=== PATIENT | female | born 1995 | race Hispanic/Latino ===

== ENCOUNTER 2024-09-07 13:38 | Emergency (ER) | payer MEDICAID, SELFPAY ==
[2024-09-07 13:49] VITALS: BP 121/65; PULSE 120; RESP 20; TEMP 37.5; O2SAT 98
[2024-09-07 15:26] LABS: BEDSIDEPREGUCG Negative (Negative)
[2024-09-07 15:43] LABS: Add Urine Microscopic? YES; Appearance Urine Cloudy (Clear); Bacteria Urine 4+ /hpf; Bilirubin Urine 1+ (Negative); Blood Urine 3+ (Negative); Color Urine Dark Yellow (Yellow); Glucose Urine UA Negative (Negative); Ketones Urine 3+ mg/dL (Negative); Leukocyte Esterase Ur 2+ LEU/UL (Negative); Nitrate Urine Positive (Negative); Non Pathogenic Casts 0-2; Protein Urine 2+ mg/dL (Negative); RBC Urine >100 /hpf (0-2); Squamous Epithelial Cell Urine None Seen /hpf (Few); WBC Urine >100 /hpf (0-3); pH Urine 5.5 (5.0-9.0)
[2024-09-07 16:16] VITALS: BP 125/76; PULSE 114; RESP 17; TEMP 37.2; O2SAT 98
--- OUTSIDE RECORDS SUMMARY | 2024-09-07 16:24 | XMS_ITS | Patient Health Summary ---
Author Organization [facility] Address [address] [place] [address] Care Team Providers Care Green Material Value Added Assessor Name Role Phone Unknown, Provider Primary Care Provider Unavaila ble Note from [facility],non-owned Affiliates and Associated Physician Practices is amultiple site organization consisting of ambulatory clinics and hospital sitesin [place], [place], [place] and [place]. This disclosure is being madepursuant to the Care Everywhere program and may not contain all information available regarding this patient. Last updated 18.[facility] Allergies No known active allergies Medications * Be aware that medications may not be up to date on this document. Alwaysverify current medications with the patient. * Vit-Fe Fumarate-FA ( vitamin) 28-0.8 MG tablet Take 1 (one) tablet by mouth once daily Social History Tobacco Use Types Packs/Day Years Used Date Smoking Tobacco: Never Assessed Sex and Gender Information Value Date Recorded Sex Assigned at Not on file Gender Identity Not on file Sexual Orientation Not on file Last Filed Vital Signs Vital Sign Reading Time Taken Comments Blood Pressure 113/60 03/07/2024 11:28 AM CDT Pulse 71 03/07/2024 11:28 AM CDT Temperature - - Respiratory Rate 18 03/07/2024 11:28 AM CDT Oxygen Saturation - - Inhaled Oxygen Concentration - - Weight 85.3 kg (188 lb) 03/07/2024 11:28 AM CDT Height 172 cm (5' 7.72 ) 03/07/2024 11:28 AM CDT Body Mass Index 28.82 03/07/2024 11:28 AM CDT Procedures * SONOGRAM - COMPLETE(Performed 03/07/2024) Performed for Second (HCC), 27 weeks gestation of (HCC), Low-lying placenta (HCC), Encounter for follow-up ultrasound of anatomy (HCC) * SONOGRAM - COMPLETE(Performed 01/04/2024) Performed for Encounter for ultrasound (HCC), Second (HCC), 23 weeks gestation of (HCC) * SONOGRAM - COMPLETE(Performed 12/11/2023) Performed for Second (HCC), 20 weeks gestation of (HCC), Encounter for anatomic survey ([facility]) Results * SONOGRAM - COMPLETE (03/07/2024 10:27 AM CDT) Only the most recent of3 resultswithin the time period is included. Anatomical Region Laterality Modality Other 03/07/2024 10:2 7 AM CDT Narrative 03/07/2024 12:31 PM CDT [facility] [place] PHONE: FAX: Pat. Name: ELISHA DUNCAN Pat. No: [id number] Study Date: 03/07/2024 10:27am , Age: 08 1995, 29 Pregnancies: 2, Para 1001 Height: 67 in Weight: 167 lb LMP: 07/24/2023 GA by LMP: 32w3d GA by Base: 32w3d ADAM: 04/29/2024 GA by US: 33w1d ADAM: 04/24/2024 GA Selected: 32w3d (LMP) ADAM: 04/29/2024 Referring MD: Marisol Ibarra DO Psychotherapist: Angelique Mir RDMS CPT4: 22281 BMI: 26.15 Hist/Ind: Possible tuberculosis infection MEASUREMENTS & AGE GROWTH EVALUATION Measurement GA Range Srce %for GA Ratios ----- ---- ------- BPD 8.4 cm 34w0d (67i6e-94b2o) Hadl BPD 84% FL/BPD 0.76 (0.71 - 0.87) HC 31.3 cm 35w0d (84l0m-40u6g) Hadl HC 81% FL/AC 0.23 (0.20 - 0.24) AC 27.5 cm 31w4d (42l7m-74o0q) Hadl AC 24% HC/AC 1.14 (0.95 - 1.14) FL 6.4 cm 33w0d (93o8s-78c0v) Hadl FL 55% CI 0.75 (0.70 - 0.86) HL 5.6 cm 32w4d (03k5s-15l7q) Dionicio HL 52% GA for sonogram 33w1d (25v7b-74p0r) Weight Estimate: based on (BPD,HC,AC,FL) Hadlock Weight: 2001 gm (1709-2293gm) Had : 4lbs, 6oz Normal: 2037 gm (1528-2546gm) Had Wt% 45% for 32w3d Heart Rate: 157 bpm Amniotic Fluid Index: 10.2cm (08.5-24.3) Q1: 1.7cm Q2: 2.1cm Q3: 3.2cm Q4: 3.2cm PROCEDURE, TECHNIQUE Technique: transabdominal EVAL, PLACENTA Presentation: cephalic Placenta: posterior:fundal Heart Rate: 157 bpm Amniotic Fluid Volume: normal Anatomy!Normal!Abnormal!Suboptimal!Prev. Seen!Comments Cranium ! ! ! ! x ! Mdl (CSP/Thal! ! ! ! x ! Ventricles ! ! ! ! x ! Choroid Plexu! ! ! ! x ! Cerebellum ! ! ! ! x ! Cisterna M. ! ! ! ! x ! Orbits ! ! ! ! x ! Profile ! ! ! ! x ! Nasal Bone ! ! ! ! x ! Lip ! ! ! ! x ! Spine ! x ! ! ! x !unremarkable transverse L/S spine, all other views were previously seen and WNL Lungs ! ! ! ! x ! 4 Chamber Hea! ! ! ! x ! LVOT ! ! ! ! x ! RVOT ! ! ! ! x ! 3 Vessel View! ! ! ! x ! 3 Vessel Trac! ! ! ! x ! Cross-over ! ! ! ! x ! Ductal Arch ! ! ! ! x ! Aortic Arch ! ! ! ! x ! Caval View ! ! ! ! x ! Situs ! ! ! ! x ! Diaphragm ! x ! ! ! ! Stomach ! ! ! ! x ! Bowel ! ! ! ! x ! Kidneys ! ! ! ! x ! Bladder ! ! ! ! x ! 3 Vessel Cord! ! ! ! x ! Cord In! x ! ! ! ! Upper Extremi! ! ! ! x ! Hands ! ! ! ! x ! Lower Extremi! ! ! ! x ! Feet ! ! ! ! x ! External Genesis! ! ! ! x ! Placental Cor! ! ! ! x ! Maternal Adne! ! ! ! x ! CLINICAL SUMMARY * Saucedo IUP at 32 weeks of gestation by stated EDC from LMP * Referred to MF for obstetrical U/S & request for consult secondary to: Possible tuberculosis (TB) infection * Today's ultrasound (U/S) findings: Living saucedo intrauterine fetus growth is in the normal range Amniotic fluid volume appears normal Placenta location appears normal ASSESSMENT Saucedo IUP at 32 weeks of gestation by stated EDC from LMP & early U/S Today's U/S shows normal interval growth & amniotic fluid volume Uncertain history of tuberculosis (TB) infection COUNSELING & RECOMMENDATIONS (PLEASE SEE FULL CONSULT IN EPIC) * In my best medical opinion, I would advise: After extensive history-taking, I am unsure if she has had documented TB infection She is advised to go [place] to local health department for TB testing Follow-up with our M HISTORICAL ARCHEOLOGIST to review health department findings & recommendations Follow-up U/S with MFM if later indicated Be prepared for possible recurrent uterine inversion Giles Patrick MD <Electronic Signature> 03/07/2024 12:31pm Trey Estes MD [facility] ORDERABLES Care Teams Green Material Value Added Assessor Relationship Specialty Start Date End Date Unknown, Provider PCP - General 12/11/23
--- OUTSIDE RECORDS SUMMARY | 2024-09-07 16:24 | XMS_ITS | Clinical Summary ---
Author Organization [facility] Address [address] [place] [address] Care Team Providers Care Timing Adjuster Name Role Phone Unknown, Provider Primary Care Provider Unavaila ble Source Comments [facility],non-owned Affiliates and Associated Physician Practices is amultiple site organization consisting of ambulatory clinics and hospital sitesin [place], [place], [place] and [place]. This disclosure is being madepursuant to the Care Everywhere program and may not contain all information available regarding this patient. Last updated 18.[facility] Month Allergies No known active allergies Medications * Be aware that medications may not be up to date on this document. Alwaysverify current medications with the patient. Medication Sig Dispensed Refills Start Date End Date Status Vit-Fe Fumarate-FA ( vitamin) 28-0.8 MG tablet Take 1 (one) tablet by mouth once daily Active Social History Tobacco Use Types Packs/Day Years [...] Mass Index 28.82 03/07/2024 11:28 AM CDT Plan of Treatment Health Maintenance Due Date Last Done Comments PAP SMEAR 1994 HIV SCREENING 2009 HEPATITIS C SCREENING 02/07/2012 DTAP/TDAP/TD VACCINES (1 - Tdap) 2013 HEPATITIS B VACCINE (1 of 3 - 19+ 3-dose series) 2013 COVID-19 VACCINE (1 - 2023-2 5 season) 2024 INFLUENZA VACCINE (#1) 2024 DEPRESSION SCREENING 06/26/2024 ZOSTER VACCINE (1 of 2) 02/12/2044 HIB VACCINE Aged Out No longer eligi ble based on patient's age to complete this topic HPV VACCINE Aged Out No longer eligi ble based on patient's age to complete this topic MENINGOCOCCAL (Group B) VACC INE SHARED DECISION-MAKING Aged Out No longer eligibl e based on patient's age to complete this topic MENINGOCOCCAL GROUPS A/C/Y/W VACCINE Aged Out No longer eligible b ased on patient's age to complete this topic PNEUMOCOCCAL VACCINE Aged Out No long er eligible based on patient's age to complete this topic Respiratory Syncytial Virus (RSV) Vaccine Pt: or over 60 yrs (No Doses Required) Completed Care Teams Timing Adjuster Relationship Specialty Start Date End Date Unknown, Provider PCP - General 12/11/23
--- OUTSIDE RECORDS SUMMARY | 2024-09-07 16:24 | XMS_ITS | Referral Summary ---
Author Organization [facility] Address [address] [place] [address] Care Team Providers Care Quality Process Engineer Name Role Phone Unknown, Provider Primary Care Provider Unavaila ble Source Comments [facility],non-owned Affiliates and Associated Physician Practices is amultiple site organization consisting of ambulatory clinics and hospital sitesin [place], [place], [place] and [place]. This disclosure is being madepursuant to the Care Everywhere program and may not contain all information available regarding this patient. Last updated 18.[facility] Allergies No known active allergies Medications * [...] 03/07/2024 11:28 AM CDT Plan of Treatment Not on file Care Teams Quality Process Engineer Relationship Specialty Start Date End Date Unknown, Provider PCP - General 12/11/23
--- OUTSIDE RECORDS SUMMARY | 2024-09-07 16:25 | XMS_ITS | Clinical Summary ---
Author Organization [facility] Address [address] [place] [address] Care Team Providers Care Registration Representative Name Role Phone Rosa Green MD Primary Care Provider [phone] Allergies No known active allergies Medications vitamin, low iron, ( VITAMIN WITH IRON) 27-0.8 MG tablet Take 1 tablet by mouth daily. Active Active Problems Problem Noted Date Diagnosed Date History of uterine inversion 04/27/2024 Overview (04/27/2024): US@ 32.3w, cephalic, placenta post/fundal, YOU 10.2cm, EFW 45%/2001g. Be prepared for possible recurrent uterine inversion. Inactive tuberculosis 02/23/2024 Overview (04/27/2024): Quantiferon gold + 11/16/2023 CXR 01/16/24 show inactive disease - pt opting to wait until after delivery for treatment - MFM referral completed, OK to wait until after delivery. Low risk for becoming active. Treatment for Latent TB Infection and (https://www.cdc.gov/tb/topic/treatment/.htm) For most women, treatment for latent TB infection can be delayed until 2 ??3 months post- to avoid administering unnecessary medication during . For women who are at high risk for progression from latent TB infection to TB disease, especially those who are a recent contact of someone with infectious TB disease, treatment for latent TB infection should not be delayed on the basis of alone, even during the first trimester. TB Treatment Regimens for Women: Latent TB Infection (choose 1) 1.) 4-month daily regimen of rifampin (RIF) (4R) 2.) 6- or 9-month daily regimen of INH (6H or 9H) , with pyridoxine (vitamin B6) supplementation Suspected tuberculosis 11/29/2023 Overview (04/27/2024): https://www.cdc.gov/tb/topic/treatment/.htm Resolved Problems Problem Noted Date Diagnosed Date Resolved Date Gestational hypertension ([facility]) 04/27/2024 04/27/2024 ([facility]) 04/25/2024 04/27/20 24 Social History Tobacco Use Types Packs/Day Years Used Date Smoking Tobacco: Never Smokeless Tobacco: Never Tobacco Cessation:Counseling Given: Not Answered Alcohol Use Standard Drinks/Week Comments Not Currently 0 (1 standard drink = 0.6 oz pur e alcohol) B1300 Health Literacy Answer Date Recor ded How often do you need to hav e someone help you when you read instructions, pamphlets, or other written material from your doctor or pharmacy? Rarely 04/25/2024 [facility] Utilities Answer Date Recorded In the past 12 months has [facility] [employer], [employer], oil, or water [place] threatened to shut off services in your home? No 04/25/2024 Humiliation, Afraid, Rape, and Kick questionnair e Answer Date Recorded Within the last year, have y ou been afraid of your partner or ex-partner? No 04/25/2024 Within the last year, have y ou been humiliated or emotionally abused in other ways by your partner or ex-partner? No Within the last year, have y ou been kicked, hit, slapped, or otherwise physically hurt by your partner or ex-partner? No 04/25/2024 Within the last year, have y ou been raped or forced to have any kind of sexual activity by your partner or ex-partner? No 04/25/2024 Social Connection and Isolat ion Panel [NHANES] Answer Date Recorded In a typical week, how many times do you talk on the phone with family, friends, or neighbors? More than three times a week 04/25/2024 How often do you get togethe r with friends or relatives? Never 04/25/2024 How often do you attend chur ch or anabaptism services? Never 04/25/2024 Do you belong to any clubs o r organizations such as confucianist groups, unions, fraternal or athletic groups, or school groups? Yes 04/25/2024 How often do you attend meet ings of the clubs or organizations you belong to? Never 04/25/2024 Are you , , di vorced, , never , or living with a partner? 04/25/2024 AUDIT-C Answer Date Recorded Q1: How often do you have a drink containing alcohol? Never 04/25/2024 Q2: How many drinks containi ng alcohol do you have on a typical day when you are drinking? Patient does not drink Q3: How often do you have si x or more drinks on one occasion? Never 04/25/2024 Overall Financial Resource Strain (CARDIA) Answe r Date Recorded How hard is it for you to pa y for the very basics like food, housing, medical care, and heating? Not hard at all 04/25/2024 [facility] [place] of Occupat ional Health - Occupational Stress Questionnaire Answer Date Recorded Do you feel stress - tense, restless, nervous, or anxious, or unable to sleep at night because your mind is troubled all the time - these days? Not at all 04/25/2024 Exercise Vital Sign Answer Date Recorde d On average, how many days pe r week do you engage in moderate to strenuous exercise (like a brisk walk)? 0 days 04/25/2024 On average, how many minutes do you engage in exercise at this level? 0 min 04/25/2024 Hunger Vital Sign Answer Date Recorded Within the past 12 months, y ou worried that your food would run out before you got the money to buy more. Never true 04/25/20 24 Within the past 12 months, t he food you bought just didn't last and you didn't have money to get more. Never true 04/25/2024 PRAPARE - Transportation Answer Date Re corded In the past 12 months, has l ack of transportation kept you from medical appointments or from getting medications? No 03/28 In the past 12 months, has l ack of transportation kept you from meetings, work, or from getting things needed for daily living? No 04/25/2024 Housing Stability Vital Sign Answer Nathan e Recorded In the last 12 months, was t here a time when you were not able to pay the mortgage or rent on time? No 04/25/2024 In the past 12 months, how m any times have you moved where you were living? 1 04/25/2024 At any time in the past 12 m ont, were you homeless or living in a assisted (including now)? No 04/25/2024 Depression Answer Date Recor ded Last EPDS Total Score 1 04/27/2024 Last EPDS Self Harm Result Hardly ever 04/27 Comments No Sex and Gender Information Value Date Recorded Sex Assigned at Not on file Legal Sex Female 12:47 PM CDT Gender Identity Not on file Sexual Orientation Not on file Last Filed Vital Signs Vital Sign Reading Time Taken Comments Blood Pressure 115/62 04/27/2024 8:00 AM CDT Pulse 68 04/27/2024 8:00 AM CDT Temperature 36.9 C (98.5 F) 04/27/2024 8:00 AM CDT Respiratory Rate 18 04/27/2024 8:00 AM CDT Oxygen Saturation 99% 04/27/2024 8:00 AM CDT Inhaled Oxygen Concentration - - Weight 88.5 kg (195 lb) 04/25/2024 5:20 PM CDT Height 170.2 cm (5' 7 ) 04/25/2024 5:20 PM CDT Body Mass Index 30.54 04/25/2024 5:20 PM CDT Plan of Treatment Health Maintenance Due Date Last Done Comments Cervical Cancer Screening Pa p Smear (Age 30 to 64) Every 3 Years 1994 Annual Physical 1997 Hepatitis C 02/12/2012 Hepatitis B Vaccines (1 of 3 - 19+ 3-dose series) 2013 Cervical Cancer Screening Pa p with HPV Testing (Age 30 to 64) Every 5 Years 02/12/2024 Cervical Cancer Screening with HPV 02/12/2024 COVID-19 Vaccine (2023-2 5 season) 2024 DTaP, Tdap and Td Vaccines ( 2 - Td or Tdap) 02/19/2034 02/20/2024 Influenza Adult Completed 03/21/2024 HPV Vaccines Aged Out No longer eligi ble based on patient's age to complete this topic Meningococcal B Vaccine Aged Out No l onger eligible based on patient's age to complete this topic Meningococcal Vaccine Aged Out No wyatt real eligible based on patient's age to complete this topic Pneumococcal Vaccine: Pediat rics (0 to 5 Years) and At-Risk Patients (6 to 64 Years) Aged Out No longer eligi ble based on patient's age to complete this topic RSV Immunizations Under 20 Months Aged Out No longer eligible based on patient's age to complete this topic Insurance MEDICAID Advance Directives * Full Code (Latest Code Status on File) Date Activated Date Inactivated Comments 04/25/2024 6:25 PM 04/27/2024 2:51 PM Care Teams Registration Representative Relationship Specialty Start Date End Date Rosa Green MD [address] [phone] PCP - General FAMILY PRACTICE 04/25/24
--- OUTSIDE RECORDS SUMMARY | 2024-09-07 16:25 | XMS_ITS | Data Portability ---
Author Organization [place] - [facility] Address [address] [place] [address] Care Team Providers Care Drapery Sewer Hand Name Role Phone MARIVEL GREEN Primary Care Provider Unavailabl e Assessment No assessment recorded. Plan of Treatment Reminders Order Date Submit Date Provider Last Modified By Organization Details Last Modified Time Details Appointments ANY 15 2024 09:00A M Marivel Green MD Not available Not available Not available Lab cytology study, smear or scraping, cervical or vaginal 2024 025 [facility], [address] [place] [address], [address], [place], [address], 07/11/2024 16:32:34 Referral None recorded. Procedures None recorded. Surgeries None recorded. Imaging None recorded. Medication Orders Priftin 150 mg tablet 2024 025 [id number], [id number] , [place], [place], [id number], 08/22/2024 17:49:46 isoniazid 300 mg tablet 2024 025 [facility] #[id number], [id number] , [place], [place], [id number], 08/22/2024 17:49:46 Patient TargetsNo targets recorded. Patient Instructions Encounter Date Encounter Id Patient Instructions Last Modified By Organization Details Last Modified Time 04/30/2024 [id number] I was present an d available in the Family Medicine clinic to discuss this patient's care for the duration of the appointment. I agree with the resident's assessment and plan as documented with the following addendum: Reviewed CDC guidelines, can defer to 2 months PP. Safety profile of these medications safe in breast feeding. Recommend to breastfeed immediately before taking isoniazid dose to allow infants to avoid peak concentrations at 1-[address] Mo Holcomb MD, [facility]ending Phys[email or web address] Not available 05/05/2024 14:32:06 05/16/2024 [id number] I was present in the clinic to discuss this patient at the time of the visit. I agree with the documented assessment and plan. Juanis Pearce MD [email or web address] Not available 05/18/2024 17:16:46 06/04/2024 [id number] I was present an d available in the Family Medicine clinic to discuss this patient's care for the duration of the appointment. I agree with the resident's assessment and plan as documented with the following addendum: None. Dr. Mo Holcomb MD, [facility] [place] Physician, [facility] [email or web address] Not available 06/05/2024 19:18:49 07/09/2024 [id number] I was present an d available in the Family Medicine clinic to discuss this patient's care during the appointment. I agree with the resident's assessment and plan as documented. KGR [email or web address] Not available 07/10/2024 11:28:41 08/22/2024 [id number] agree w plan and treatment Dr. Ki [email or web address] Not available 08/22/2024 18:16:56 Reason for Referral None Reported. Results Created Date Observation Date Name Description Value Unit Range Abnormal Flag Note LastModifiedBy Organization Detail LastModifiedTime 04/05/2004/06/2024 SPECI MEN STATU S REPOR T specimen status report TNP Test not perfo rmed. No serum gel recei maggi. TEST: [id number] [id number] RPR, Rfx Qn RPR/C onfir m TP Not Available [facility] ([facility]) [address], [place], [address], 04/09/2024 13:12:51 04/05/20 24 04/09/2024 STREP GP B CULTU RE+RF LX strep gp B culture+rflx NEGATI VE negati ve Cent[facility] Disea se Contr ol and Preve ntion ([facility]) and Ameri can Congr ess of Obste trici ans and Gynec ologi sts (ACOG ) guide lines for preve ntion of perin atal group B strep tococ j carlos (GBS) disea se speci fy co-co llect ion of a vagin al and recta l swab speci men to maxim ize sensi tivit y of GBS detec tion. Per the CDC and ACOG, swabb ing both the lower vagin a and rectu m subst antia lly incre ases the yield of detec tion jeimy red with sampl ing the vagin a alone . Penic illin G, ampic illin , or cefaz paty are indic ated for intra partu m proph ylaxi s of perin atal GBS colon izati on. Refle x susce ptibi lity testi ng shoul d be perfo rmed prior to use of clind amyci n only on GBS isola nba from penic illin -padmini rgic women who are consi dered a high risk for anaph ylaxi s. Treat ment with vanco mycin witho ut addit ional testi ng is warra nted if resis tance to clind amyci n is noted . Not Available [facility] ([facility]) [address] [address], [place], [address], 04/09/2024 13:12:51 04/05/2004/06/2024 RPR, RFX QN RPR/C ONFIR M TP RPR - Test not perfo rmed. No serum gel recei maggi. Not Available [facility] ([facility]) [address] [facility] [address], [place], [address], 04/09/2024 13:12:53 04/25/20 24 04/25/2024 Blood type and Indir ect antib marie scree n panel - Blood ABO and Rh group panel - blood O POSITI VE ABO/R H O POSIT BENNY 04/25 7:51 PM CDT [facility] Not Available Not Available 08/06/2024 14:21:18 04/25/20 24 04/25/2024 Blood type and Indir ect antib marie scree n panel - Blood blood group antibody screen [presence] in serum or plasma NEGATI VE ANTIB MARIE SCREE N NEGAT BENNY 04/25 7:51 PM CDT [facility] Not Available Not Available 08/06/2024 14:21:18 04/25/20 24 04/25/2024 Blood type and Indir ect antib marie scree n panel - Blood specimen expiration date of blood 2023,2 359 SAMPL E EXPIR ATION 04/28 ,2359 04/25 7:51 PM CDT [facility] Not Available Not Available 08/06/2024 14:21:18 04/25/20 24 04/25/2024 Trepo nema palli dum IgG+I gM Ab [Pres ence] in Serum treponema pallidum IgG+IgM Ab [presence] in serum NON-RE ACTIVE text: non-re active SYPHI LIS IGG IGM AB NON-R EACTI VE NON-R EACTI VE 04/25 7:56 PM CDT [facility] Not Available Not Available 08/06/2024 14:21:18 04/25/20 24 04/25/2024 CBC W Auto Diffe renti al panel - Blood leukocytes [#/volume] in blood by automated count 9.81 text: 4.5 - 11.0 x10'3/ uL WBC 9.81 4.5 - 11.0 x10'3 /uL 04/25 6:48 PM CDT [facility] Not Available Not Available 08/06/2024 14:21:18 04/25/20 24 04/25/2024 CBC W Auto Diffe renti al panel - Blood erythrocytes [#/volume] in blood by automated count 3.87 text: 4.20 - 5.40 x10'6/ uL low RBC 3.87 (L) 4.20 - 5.40 x10'6 /uL 04/25 6:48 PM CDT [facility] Not Available Not Available 08/06/2024 14:21:18 04/25/20 24 04/25/2024 CBC W Auto Diffe renti al panel - Blood hemoglobin [mass/volume ] in blood 12 text: 12.0 - 16.0 g/dL HGB 12.0 12.0 - 16.0 G/DL 04/25 6:48 PM CDT [facility] Not Available Not Available 08/06/2024 14:21:18 04/25/20 24 04/25/2024 CBC W Auto Diffe renti al panel - Blood hematocrit [volume fraction] of blood 35.8 % low: 38%hig h: 48% low HCT 35.8 (L) 38.0 - 48.0 % 04/25 6:48 PM CDT [facility] Not Available Not Available 08/06/2024 14:21:18 04/25/20 24 04/25/2024 CBC W Auto Diffe renti al panel - Blood MCV [entitic volume] 92.5 text: 81.0 - 99.0 fL MCV 92.5 81.0 - 99.0 FL 04/25 6:48 PM CDT [facility] Not Available Not Available 08/06/2024 14:21:18 04/25/20 24 04/25/2024 CBC W Auto Diffe renti al panel - Blood MCH [entitic mass] 31 pg low: 27pghi gh: 31pg MCH 31.0 27.0 - 31.0 PG 04/25 6:48 PM CDT [facility] Not Available Not Available 08/06/2024 14:21:18 04/25/20 24 04/25/2024 CBC W Auto Diffe renti al panel - Blood MCHC [mass/volume ] 33.5 text: 32.0 - 36.0 g/dL MCHC 33.5 32.0 - 36.0 G/DL 04/25 6:48 PM CDT [facility] Not Available Not Available 08/06/2024 14:21:18 04/25/20 24 04/25/2024 CBC W Auto Diffe renti al panel - Blood erythrocyte distribution width [entitic volume] by automated count 12.4 % low: 11.5%h igh: 14.5% RDW 12.4 11.5 - 14.5 % 04/25 6:48 PM CDT [facility] Not Available Not Available 08/06/2024 14:21:18 04/25/20 24 04/25/2024 CBC W Auto Diffe renti al panel - Blood platelets [#/volume] in blood 257 text: 130 - 400 x10'3/ uL PLT 257 130 - 400 x10'3 /uL 04/25 6:48 PM CDT [facility] Not Available Not Available 08/06/2024 14:21:18 04/25/20 24 04/25/2024 CBC W Auto Diffe renti al panel - Blood platelet mean volume [entitic volume] in blood 12.4 text: 9.3 - 12.2 fL high MPV 12.4 (H) 9.3 - 12.2 FL 04/25 6:48 PM CDT [facility] Not Available Not Available 08/06/2024 14:21:18 04/25/20 24 04/25/2024 CBC W Auto Diffe renti al panel - Blood differential cell count method - blood AUTOMA GENE DIFFER ENTIAL DIFFE RENTI AL TYPE AUTOM ATED DIFFE RENTI AL 04/25 6:48 PM CDT [facility] Not Available Not Available 08/06/2024 14:21:18 04/25/20 24 04/25/2024 CBC W Auto Diffe renti al panel - Blood neutrophils/ 100 leukocytes in blood by automated count 69.1 % NEUTR OPHIL S % 69.1 % 04/25 6:48 PM CDT [facility] Not Available Not Available 08/06/2024 14:21:18 04/25/20 24 04/25/2024 CBC W Auto Diffe renti al panel - Blood lymphocytes/ 100 leukocytes in blood by automated count 18.5 % LYMPH OCYTE S % 18.5 % 04/25 6:48 PM CDT [facility] Not Available Not Available 08/06/2024 14:21:18 04/25/20 24 04/25/2024 CBC W Auto Diffe renti al panel - Blood monocytes/10 0 leukocytes in blood by automated count 11 % MONOC YTES % 11.0 % 04/25 6:48 PM CDT [facility] Not Available Not Available 08/06/2024 14:21:18 04/25/20 24 04/25/2024 CBC W Auto Diffe renti al panel - Blood eosinophils/ 100 leukocytes in blood by automated count 0.7 % EOSIN OPHIL S 0.7 % 04/25 6:48 PM CDT [facility] Not Available Not Available 08/06/2024 14:21:18 04/25/20 24 04/25/2024 CBC W Auto Diffe renti al panel - Blood basophils/10 0 leukocytes in blood by automated count 0.4 % BASOP HILS 0.4 % 04/25 6:48 PM CDT [facility] Not Available Not Available 08/06/2024 14:21:18 04/25/20 24 04/25/2024 CBC W Auto Diffe renti al panel - Blood immature granulocytes /100 leukocytes in blood by automated count 0.3 % IMMAT URE GRANS % 0.3 % 04/25 6:48 PM CDT [facility] Not Available Not Available 08/06/2024 14:21:18 04/25/20 24 04/25/2024 CBC W Auto Diffe renti al panel - Blood neutrophils [#/volume] in blood 6.78 text: 1.80 - 7.70 x10'3/ uL ABS. NEUTR OPHIL S 6.78 1.80 - 7.70 x10'3 /uL 04/25 6:48 PM CDT [facility] Not Available Not Available 08/06/2024 14:21:18 04/25/20 24 04/25/2024 CBC W Auto Diffe renti al panel - Blood lymphocytes [#/volume] in blood 1.81 text: 1.00 - 4.80 x10'3/ uL ABS. LYMPH OCYTE S 1.81 1.00 - 4.80 x10'3 /uL 04/25 6:48 PM CDT [facility] Not Available Not Available 08/06/2024 14:21:18 04/25/20 24 04/25/2024 CBC W Auto Diffe renti al panel - Blood monocytes [#/volume] in blood 1.08 text: 0.24 - 0.86 x10'3/ uL high ABS. MONOC YTES 1.08 (H) 0.24 - 0.86 x10'3 /uL 04/25 6:48 PM CDT [facility] Not Available Not Available 08/06/2024 14:21:18 04/25/20 24 04/25/2024 CBC W Auto Diffe renti al panel - Blood eosinophils [#/volume] in blood 0.07 text: 0.04 - 0.36 x10'3/ uL ABS. EOSIN OPHIL S 0.07 0.04 - 0.36 x10'3 /uL 04/25 6:48 PM CDT [facility] Not Available Not Available 08/06/2024 14:21:18 04/25/20 24 04/25/2024 CBC W Auto Diffe renti al panel - Blood basophils [#/volume] in blood 0.04 text: 0.01 - 0.08 x10'3/ uL ABS. BASOP HILS 0.04 0.01 - 0.08 x10'3 /uL 04/25 6:48 PM CDT [facility] Not Available Not Available 08/06/2024 14:21:18 04/25/20 24 04/25/2024 CBC W Auto Diffe renti al panel - Blood immature granulocytes [#/volume] in blood 0.03 text: 0.00 - 0.49 x10'3/ uL ABS. IMMAT URE GRANU LOCYT ES 0.03 0.00 - 0.49 x10'3 /uL 04/25 6:48 PM CDT [facility] Not Available Not Available 08/06/2024 14:21:18 04/25/20 24 04/25/2024 CBC W Auto Diffe renti al panel - Blood interpretati on and review of laboratory results Abnorm al Not Available Not Available 14:21:18 04/25/20 24 04/25/2024 Drugs of abuse panel - Urine by Scree n metho d amphetamine [presence] in urine by screen method NEGATI VE text: negati ve AMPHE TAMIN E (U) NEGAT BENNY NEGAT BENNY 04/25 7:08 PM CDT [facility] Not Available Not Available 08/06/2024 14:21:18 04/25/20 24 04/25/2024 Drugs of abuse panel - Urine by Scree n metho d barbiturate screen present [identifier] in urine NEGATI VE text: negati ve FRANCINE TURAT ES SCREE N (U) NEGAT BENNY NEGAT BENNY 04/25 7:08 PM CDT [facility] Not Available Not Available 08/06/2024 14:21:18 04/25/20 24 04/25/2024 Drugs of abuse panel - Urine by Scree n metho d benzodiazepi amber [presence] in urine by screen method NEGATI VE text: negati ve BENZO DIAZE PINES SCREE N (U) NEGAT BENNY NEGAT BENNY 04/25 7:08 PM CDT [facility] Not Available Not Available 08/06/2024 14:21:18 10/31/04/25/2024 Drugs of abuse panel - Urine by Scree n metho d cannabinoids [presence] in urine by screen method NEGATI VE text: negati ve CANNA BINOI DS SCREE N (U) NEGAT BENNY NEGAT BENNY 04/25 7:08 PM CDT [facility] Not Available Not Available 08/06/2024 14:21:18 04/25/20 24 04/25/2024 Drugs of abuse panel - Urine by Scree n metho d cocaine [presence] in urine by screen method NEGATI VE text: negati ve COCAI NE METAB OLITE S (U) NEGAT BENNY NEGAT BENNY 04/25 7:08 PM CDT [facility] Not Available Not Available 08/06/2024 14:21:18 04/25/20 24 04/25/2024 Drugs of abuse panel - Urine by Scree n metho d methadone [presence] in urine NEGATI VE text: negati ve METHA DONE (U) NEGAT BENNY NEGAT BENNY 04/25 7:08 PM CDT [facility] Not Available Not Available 08/06/2024 14:21:18 04/25/20 24 04/25/2024 Drugs of abuse panel - Urine by Scree n metho d opiates [presence] in urine NEGATI VE text: negati ve OPIAT E SCREE N (U) NEGAT BENNY NEGAT BENNY 04/25 7:08 PM CDT [facility] Not Available Not Available 08/06/2024 14:21:18 04/25/20 24 04/25/2024 Drugs of abuse panel - Urine by Scree n metho d phencyclidin e [presence] in urine NEGATI VE text: negati ve PHENC YCLID INE PCP (U) NEGAT BENNY NEGAT BENNY 04/25 7:08 PM CDT [facility] Not Available Not Available 08/06/2024 14:21:18 04/25/20 24 04/25/2024 Drugs of abuse panel - Urine by Jasmyn blanco creatinine [mass/volume ] in urine 177 text: 28 - 217 mg/dL CREAT ININE (U) 177.0 28 - 217 MG/DL 04/25 7:08 PM CDT [facility] Not Available Not Available 08/06/2024 14:21:18 04/25/20 24 04/25/2024 Urina lysis dipst ick W Refle x Micro scopi c panel - Urine collection method - specimen URINE CLEAN CATCH SPECI MEN TYPE URINE CLEAN CATCH 04/25 6:01 PM CDT [facility] Not Available Not Available 08/06/2024 14:21:17 04/25/20 24 04/25/2024 Urina lysis dipst ick W Refle x Micro scopi c panel - Urine color of urine YELLOW COLOR (U) YELLO W 04/25 6:22 PM CDT [facility] Not Available Not Available 08/06/2024 14:21:17 04/25/20 24 04/25/2024 Urina lysis dipst ick W Refle x Micro scopi c panel - Urine clarity of urine CLEAR TRANS PAREN CY CLEAR 04/25 6:22 PM CDT [facility] Not Available Not Available 08/06/2024 14:21:17 04/25/20 24 04/25/2024 Urina lysis dipst ick W Refle x Micro scopi c panel - Urine specific gravity of urine 1.023 low: 1.001h igh: 1.03 SPECI FIC GRAVI TY (U) 1.023 1.001 - 1.030 04/25 6:22 PM CDT [facility] Not Available Not Available 08/06/2024 14:21:17 04/25/20 24 04/25/2024 Urina lysis dipst ick W Refle x Micro scopi c panel - Urine pH of urine 6.5 low: 5high: 9 U PH 6.5 5.0 - 9.0 04/25 6:22 PM CDT [facility] Not Available Not Available 08/06/2024 14:21:17 04/25/20 24 04/25/2024 Urina lysis dipst ick W Refle x Micro scopi c panel - Urine leukocytes [#/volume] in urine by test strip 25 text: negati ve abnormal LEUKO CYTES (U) 25 (A) NEGAT BENNY 04/25 6:22 PM CDT [facility] Not Available Not Available 08/06/2024 14:21:17 04/25/20 24 04/25/2024 Urina lysis dipst ick W Refle x Micro scopi c panel - Urine nitrite [presence] in urine NEGATI VE text: negati ve NITRI NBA NEGAT BENNY NEGAT BENNY 04/25 6:22 PM CDT [facility] Not Available Not Available 08/06/2024 14:21:17 04/25/20 24 04/25/2024 Urina lysis dipst ick W Refle x Micro scopi c panel - Urine protein [mass/volume ] in urine by test strip 10 text: <30 mg/dL PROTE IN RANDO M (U) 10 <30 MG/DL 04/25 6:22 PM CDT [facility] Not Available Not Available 08/06/2024 14:21:17 04/25/20 24 04/25/2024 Urina lysis dipst ick W Refle x Micro scopi c panel - Urine glucose [mass/volume ] in urine NORMAL text: normal mg/dL GLUCO SE (U) COLLEEN L COLLEEN L MG/DL 04/25 6:22 PM CDT [facility] Not Available Not Available 08/06/2024 14:21:17 04/25/20 24 04/25/2024 Urina lysis dipst ick W Refle x Micro scopi c panel - Urine ketones [mass/volume ] in urine by test strip NEGATI VE text: negati ve mg/dL KETON ES MG/DL (U) NEGAT BENNY NEGAT BENNY MG/DL 04/25 6:22 PM CDT [facility] Not Available Not Available 08/06/2024 14:21:17 04/25/20 24 04/25/2024 Urina lysis dipst ick W Refle x Micro scopi c panel - Urine urobilinogen [units/volum e] in urine by test strip NORMAL text: normal mg/dL UROBI LINOG EN COLLEEN L COLLEEN L MG/DL 04/25 6:22 PM CDT [facility] Not Available Not Available 08/06/2024 14:21:17 04/25/20 24 04/25/2024 Urina lysis dipst ick W Refle x Micro scopi c panel - Urine bilirubin.to larry [mass/volume ] in urine NEGATI VE text: negati ve mg/dL BILIR UBIN (U) NEGAT BENNY NEGAT BENNY MG/DL 04/25 6:22 PM CDT [facility] Not Available Not Available 08/06/2024 14:21:17 04/25/20 24 04/25/2024 Urina lysis dipst ick W Refle x Micro scopi c panel - Urine erythrocytes [#/volume] in urine by automated test strip 3+ text: negati ve abnormal BLOOD (U) 3+ (A) NEGAT BENNY 04/25 6:22 PM T [facility] Not Available Not Available 08/06/2024 14:21:17 04/25/20 24 04/25/2024 Urina lysis dipst ick W Refle x Micro scopi c panel - Urine mucus [#/area] in urine sediment by microscopy low power field RARE text: /lpf MUCUS RARE /LPF 04/25 6:22 PM T [facility] Not Available Not Available 08/06/2024 14:21:17 04/25/20 24 04/25/2024 Urina lysis dipst ick W Refle x Micro scopi c panel - Urine leukocytes [#/area] in urine sediment by microscopy high power field 15 text: <6 /hpf high WBC/H PF 15 (H) <6 /HPF 04/25 6:22 PM CDT [facility] Not Available Not Available 08/06/2024 14:21:17 04/25/20 24 04/25/2024 Urina lysis dipst ick W Refle x Micro scopi c panel - Urine erythrocytes [#/area] in urine sediment by microscopy high power field 7 text: <6 /hpf high RBC/H PF 7 (H) <6 /HPF 04/25 6:22 PM CDT [facility] Not Available Not Available 08/06/2024 14:21:17 04/25/20 24 04/25/2024 Urina lysis dipst ick W Refle x Micro scopi c panel - Urine calcium oxalate crystals [#/area] in urine sediment by microscopy high power field MANY text: /hpf CA OXALA TE CRYST ALS MANY /HPF 04/25 6:22 PM CDT [facility] Not Available Not Available 08/06/2024 14:21:17 04/25/20 24 04/25/2024 Urina lysis dipst ick W Refle x Micro scopi c panel - Urine epithelial cells.squamo us [#/area] in urine sediment by microscopy high power field FEW text: /hpf SQUAM OUS EPITH ELIAL S FEW /HPF 04/25 6:22 PM CDT [facility] Not Available Not Available 08/06/2024 14:21:17 04/25/20 24 04/25/2024 Urina lysis dipst ick W Refle x Micro scopi c panel - Urine interpretati on and review of laboratory results Abnorm al Not Available Not Available 14:21:17 04/26/20 24 04/26/2024 SJS SURGI J CARLOS PATHO LOGY sjs surgical pathology [facility] tment of Labor atory Medic ine [address] [place] [address] Telep rosemary: , exten harinder [id number] Patho logy Repor t Surgi j carlos Patho logy Repor t Name: NYDIA ADAME Specnichol men #: [id number] Age: [id number] (Age: 29) Locat ion: [facility] IF Sex: F Proce dure Date: 2023 Hospi larry #: [id number] Date Recei maggi: 2023 Date Repor gene: 2023 Provi miguelina: KIMBE RLY E GREGORIO LE DO MO SOFIA WHEELER MD [facility] e: Place nta Clini j carlos Histo ry: 39-we ek 4-day gesta tion, . Vagin al deliv tad of femal e infan t. Mecon ium. Inact benny TB. Gross Descr iptio n: Recei maggi in forma fannie, label ed with a patie nt label and as plac enta, is a 17.[address]ta that avera ges 2.5 cm in thick ness. The attac hed membr anes are torn and may be incom plete . The membr anes are glist ening , semit ransl ucent to thick ened, roper-y ellow , and inser t in ramos nal fashi on. The membr ane site of ruptu re is not defin itive ly ident ified . The amnio tic membr anes are zoe d back over appro ximat jennie 40% of the surfa ce. A 12.0 cm tortu ous, triva scula r umbil ical cord avera ges 0.[address] and inser ts 2.7 cm from the neare st place ntal ramos n. Separ ately recei maggi is a simil ar 14.5 cm umbil ical cord segme nt. The place ntal disc weigh s 454 g. The surfa ce is glist ening , blue- green , and appea rs fairl y poorl y vascu lariz ed. The vesse ls are predo minan tly thinn ed. A 15.0 x 5.5 cm focus of subam nioti c hemor rhage exten ds from the umbil ical cord inser tion site to the place ntal ramos n. The mater nal surfa ce is compo sed of intac t, spong y roper-r ed cotyl edons . Appro ximat jennie 40% of the mater nal surfa ce displ ays mild calci ficat ion. Secti oning revea ls no discr ete intra paren chyma l lesio ns or dariela s. Secti ons are submi tted as follo ws: 1 membr anes 2 umbil ical cord 3 paren chyma . Gross exami natio n (when appli cable ) was perfo rmed at [facility], [address], [place] [address] . This case was inter prete d and clau d out at [facility], [address] [facility] [facility] [address] . FINAL DIAGN OSIS: Place replaced by [facility] anson, third trime ster, deliv tad: -Plac ental disc (454 g) with delay ed villo us matur ation . 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 -Thre e-ves frieda umbil ical cord with no signi fican t diagn ostic abnor malit y. Iona ctron icall y Clau d Out Jeffery smith M.D. Not Available [facility] (Lab) [address] [facility], [place], [address], 04/30/2024 14:21:18 04/26/20 24 04/26/2024 Compr ehens benny metab olic 1999 panel - Serum or Plasm a glucose [mass/volume ] in serum or plasma 114 text: 70 - 99 mg/dL high GLUCO SE 114 (H) 70 - 99 MG/DL 04/26 2:26 PM CDT [facility] Not Available Not Available 08/06/2024 14:21:18 11/01/20 24 04/26/2024 Compr ehens benny metab olic 1999 panel - Serum or Plasm a urea nitrogen [mass/volume ] in serum or plasma 12 text: 7 - 18 mg/dL BUN 12 7 - 18 MG/DL 04/26 2:26 PM CDT [facility] Not Available Not Available 08/06/2024 14:21:18 04/26/20 24 04/26/2024 Compr ehens benny metab olic 1999 panel - Serum or Plasm a creatinine [mass/volume ] in serum or plasma 0.88 text: 0.55 - 1.02 mg/dL CREAT ININE S/P/B 0.88 0.55 - 1.02 MG/DL 04/26 2:26 PM CDT [facility] Not Available Not Available 08/06/2024 14:21:18 04/26/20 24 04/26/2024 Compr ehens benny metab olic 1999 panel - Serum or Plasm a sodium [moles/volum e] in serum or plasma 136 text: 136 - 145 mmol/L SODIU M S/P/B 136 136 - 145 MMOL/ L 04/26 2:26 PM CDT [facility] Not Available Not Available 08/06/2024 14:21:18 04/26/20 24 04/26/2024 Compr ehens benny metab olic 1999 panel - Serum or Plasm a potassium [moles/volum e] in serum or plasma 4 text: 3.5 - 5.1 mmol/L POTAS SIUM S/P/B 4.0 3.5 - 5.1 MMOL/ L 04/26 2:26 PM CDT [facility] Not Available Not Available 08/06/2024 14:21:18 04/26/20 24 04/26/2024 Compr ehens benny metab olic 2000 panel - Serum or Plasm a chloride [moles/volum e] in serum or plasma 110 text: 97 - 115 mmol/L CHLOR ROGELIO S/P/B 110 97 - 115 MMOL/ L 04/26 2:26 PM CDT [facility] Not Available Not Available 08/06/2024 14:21:18 04/26/20 24 04/26/2024 Compr ehens benny metab olic 2000 panel - Serum or Plasm a carbon dioxide, total [moles/volum e] in serum or plasma 21.5 text: 21 - 32 mmol/L CO2 21.5 21 - 32 MMOL/ L 04/26 2:26 PM CDT [facility] Not Available Not Available 08/06/2024 14:21:18 04/26/20 24 04/26/2024 Compr ehens benny metab olic 2000 panel - Serum or Plasm a calcium [mass/volume ] in serum or plasma 9.3 text: 8.5 - 10.1 mg/dL CALCI UM S/P/B 9.3 8.5 - 10.1 MG/DL 04/26 2:26 PM CDT [facility] Not Available Not Available 08/06/2024 14:21:18 04/26/20 24 04/26/2024 Compr ehens benny metab olic 2000 panel - Serum or Plasm a bilirubin.to larry [mass/volume ] in serum or plasma 0.5 text: 0.2 - 1.2 mg/dL BILIR UBIN TOTAL S/P/B 0.5 0.2 - 1.2 MG/DL 04/26 2:26 PM CDT [facility] Not Available Not Available 08/06/2024 14:21:18 04/26/20 24 04/26/2024 Compr ehens benny metab olic 2000 panel - Serum or Plasm a protein [mass/volume ] in serum or plasma 6.6 text: 6.4 - 8.2 g/dL TOTAL PROTE IN S/P/B 6.6 6.4 - 8.2 G/DL 04/26 2:26 PM CDT [facility] Not Available Not Available 08/06/2024 14:21:18 04/26/20 24 04/26/2024 Compr ehens benny metab olic 1999 panel - Serum or Plasm a albumin [mass/volume ] in serum or plasma 2.4 text: 3.4 - 5.0 g/dL low ALBUM IN S/P/B 2.4 (L) 3.4 - 5.0 G/DL 04/26 2:26 PM CDT [facility] Not Available Not Available 08/06/2024 14:21:18 04/26/20 24 04/26/2024 Compr ehens benny metab olic 1999 panel - Serum or Plasm a aspartate aminotransfe rase [enzymatic activity/vol ume] in serum or plasma 24 U/L low: 15U/Lh igh: 37U/L AST 24 15 - 37 U/L 04/26 2:26 PM CDT [facility] Not Available Not Available 08/06/2024 14:21:18 04/26/20 24 04/26/2024 Compr ehens benny metab olic 1999 panel - Serum or Plasm a alanine aminotransfe rase [enzymatic activity/vol ume] in serum or plasma 18 U/L low: 14U/Lh igh: 55U/L ALT 18 14 - 55 U/L 04/26 2:26 PM CDT [facility] Not Available Not Available 08/06/2024 14:21:18 04/26/20 24 04/26/2024 Compr ehens benny metab olic 1999 panel - Serum or Plasm a alkaline phosphatase [enzymatic activity/vol ume] in serum or plasma 213 U/L low: 50U/Lh igh: 136U/L high ALKAL INE PHOSP HATAS E S/P/B 213 (H) 50 - 136 U/L 04/26 2:26 PM CDT [facility] Not Available Not Available 08/06/2024 14:21:18 04/26/20 24 04/26/2024 Compr ehens benny metab olic 2000 panel - Serum or Plasm a anion gap in serum or plasma 4.5 text: 2 - 10 mmol/L ANION GAP 4.5 2 - 10 MMOL/ L 04/26 2:26 PM CDT [facility] Not Available Not Available 08/06/2024 14:21:18 04/26/20 24 04/26/2024 Compr ehens benny metab olic 1999 panel - Serum or Plasm a urea nitrogen/cre atinine [mass ratio] in serum or plasma 13.7 low: 6high: 26 BUN CREAT ININE RATIO 13.7 6 - 26 04/26 2:26 PM CDT [facility] Not Available Not Available 08/06/2024 14:21:18 04/26/20 24 04/26/2024 Compr ehens benny metab olic 1999 panel - Serum or Plasm a albumin/glob ulin [mass ratio] in serum or plasma 0.6 text: 1.0 - 2.0 ratio low A/G RATIO 0.6 (L) 1.0 - 2.0 RATIO 04/26 2:26 PM CDT [facility] Not Available Not Available 08/06/2024 14:21:18 04/26/20 24 04/26/2024 Compr ehens benny metab olic 1999 panel - Serum or Plasm a glomerular filtration rate/1.73 sq M.predicted [volume rate/area] in serum, plasma or blood by creatinine-b ased formula (CKD-epi 2020) text: >90 mL/min /1.73 M2 GFR ESTIM ATE >90 >90 ML/ND N/1.7 3 M2 04/26 2:26 PM CDT [facility] Not Available Not Available 08/06/2024 14:21:18 04/26/20 24 04/26/2024 Compr ehens benny metab olic 2000 panel - Serum or Plasm a interpretati on and review of laboratory results Ab[facility] al Not Available Not Available 14:21:18 04/26/20 24 04/26/2024 CBC W Auto Diffe renti al panel - Blood leukocytes [#/volume] in blood by automated count 13.1 text: 4.5 - 11.0 x10'3/ uL high WBC 13.10 (H) 4.5 - 11.0 x10'3 /uL 04/26 2:27 PM CDT [facility] Not Available Not Available 08/06/2024 14:21:18 04/26/20 24 04/26/2024 CBC W Auto Diffe renti al panel - Blood erythrocytes [#/volume] in blood by automated count 3.05 text: 4.20 - 5.40 x10'6/ uL low RBC 3.05 (L) 4.20 - 5.40 x10'6 /uL 04/26 2:27 PM CDT [facility] Not Available Not Available 08/06/2024 14:21:18 04/26/20 24 04/26/2024 CBC W Auto Diffe renti al panel - Blood hemoglobin [mass/volume ] in blood 9.6 text: 12.0 - 16.0 g/dL low HGB 9.6 (L) 12.0 - 16.0 G/DL 04/26 2:27 PM CDT [facility] Not Available Not Available 08/06/2024 14:21:18 04/26/20 24 04/26/2024 CBC W Auto Diffe renti al panel - Blood hematocrit [volume fraction] of blood 28.6 % low: 38%hig h: 48% low HCT 28.6 (L) 38.0 - 48.0 % 04/26 2:27 PM CDT [facility] Not Available Not Available 08/06/2024 14:21:18 04/26/20 24 04/26/2024 CBC W Auto Diffe renti al panel - Blood MCV [entitic volume] 93.8 text: 81.0 - 99.0 fL MCV 93.8 81.0 - 99.0 FL 04/26 2:27 PM CDT [facility] Not Available Not Available 08/06/2024 14:21:18 04/26/20 24 04/26/2024 CBC W Auto Diffe renti al panel - Blood MCH [entitic mass] 31.5 pg low: 27pghi gh: 31pg high MCH 31.5 (H) 27.0 - 31.0 PG 04/26 2:27 PM CDT [facility] Not Available Not Available 08/06/2024 14:21:18 04/26/20 24 04/26/2024 CBC W Auto Diffe renti al panel - Blood MCHC [mass/volume ] 33.6 text: 32.0 - 36.0 g/dL MCHC 33.6 32.0 - 36.0 G/DL 04/26 2:27 PM CDT [facility] Not Available Not Available 08/06/2024 14:21:18 04/26/20 24 04/26/2024 CBC W Auto Diffe renti al panel - Blood erythrocyte distribution width [entitic volume] by automated count 12.6 % low: 11.5%h igh: 14.5% RDW 12.6 11.5 - 14.5 % 04/26 2:27 PM CDT [facility] Not Available Not Available 08/06/2024 14:21:18 04/26/20 24 04/26/2024 CBC W Auto Diffe naomi al panel - Blood platelets [#/volume] in blood 249 text: 130 - 400 x10'3/ uL PLT 249 130 - 400 x10'3 /uL 04/26 2:27 PM CDT [facility] Not Available Not Available 08/06/2024 14:21:18 04/26/20 24 04/26/2024 CBC W Auto Diffe renti al panel - Blood platelet mean volume [entitic volume] in blood 12.4 text: 9.3 - 12.2 fL high MPV 12.4 (H) 9.3 - 12.2 FL 04/26 2:27 PM CDT [facility] Not Available Not Available 08/06/2024 14:21:18 04/26/20 24 04/26/2024 CBC W Auto Diffe renti al panel - Blood differential cell count method - blood MANUAL DIFFER ENTIAL DIFFE RENTI AL TYPE LUIZA L DIFFE RENTI AL 04/26 2:29 PM CDT [facility] Not Available Not Available 08/06/2024 14:21:18 04/26/20 24 04/26/2024 CBC W Auto Diffe renti al panel - Blood segmented neutrophils/ 100 leukocytes in blood by manual count 85 % SEG NEUTR OPHIL S 85 % 04/26 2:29 PM CDT [facility] Not Available Not Available 08/06/2024 14:21:18 04/26/20 24 04/26/2024 CBC W Auto Diffe renti al panel - Blood lymphocytes/ 100 leukocytes in blood by manual count 11 % LYMPH OCYTE S 11 % 04/26 2:29 PM CDT [facility] Not Available Not Available 08/06/2024 14:21:18 04/26/20 24 04/26/2024 CBC W Auto Diffe renti al panel - Blood monocytes/10 0 leukocytes in blood by manual count 4 % MONOC YTES 4 % 04/26 2:29 PM CDT [facility] Not Available Not Available 08/06/2024 14:21:18 04/26/20 24 04/26/2024 CBC W Auto Diffe renti al panel - Blood neutrophils [#/volume] in blood 11.14 text: 1.80 - 7.70 x10'3/ uL high ABS. NEUTR OPHIL S 11.14 (H) 1.80 - 7.70 x10'3 /uL 04/26 2:29 PM CDT [facility] Not Available Not Available 08/06/2024 14:21:18 04/26/20 24 04/26/2024 CBC W Auto Diffe renti al panel - Blood lymphocytes [#/volume] in blood 1.44 text: 1.00 - 4.80 x10'3/ uL ABS. LYMPH OCYTE S 1.44 1.00 - 4.80 x10'3 /uL 04/26 2:29 PM CDT [facility] Not Available Not Available 08/06/2024 14:21:18 04/26/20 24 04/26/2024 CBC W Auto Diffe renti al panel - Blood monocytes [#/volume] in blood 0.52 text: 0.24 - 0.86 x10'3/ uL ABS. MONOC YTES 0.52 0.24 - 0.86 x10'3 /uL 04/26 2:29 PM CDT [facility] Not Available Not Available 08/06/2024 14:21:18 04/26/20 24 04/26/2024 CBC W Auto Diffe renti al panel - Blood erythrocytes [morphology] in blood by automated count RBC MORPHO LOGY APPEAR S NORMAL . SLIDE REVIEW ED. RBC MORPH OLOGY RBC MORPH OLOGY APPEA RACHELLE Frey SLIDE REVIE WED. 04/26 2:29 PM CDT [facility] Not Available Not Available 08/06/2024 14:21:18 04/26/20 24 04/26/2024 CBC W Auto Diffe renti al panel - Blood platelets [#/volume] in blood by automated count ADEQUA TE PLT EST. ADEQU ATE 04/26 2:29 PM CDT [facility] Not Available Not Available 08/06/2024 14:21:18 04/26/20 24 04/26/2024 CBC W Auto Diffe renti al panel - Blood interpretati on and review of laboratory results Abnorm al Not Available Not Available 14:21:18 04/26/20 24 04/30/2024 Patho logy study pathology study [facility] [address] [place] [address] Teleph one: [phone], extens ion [id number] [phone] Pathol ogy Report Surgic al Pathol ogy Report Name: KARINA SÁNCHEZ en #: [id number] Age: [birth year] (Age: 29) Locati on: [facility] F Sex: F Proced ure Date: Hospit al #: [id number] Date Receiv ed: Date Report ed: Provid er: VINOD Funk PORTAL E DO MO LINARES MD [facility] : [facility] Histor y: 39-wee k 4-day gestat ion, . Vagina l delive ry of female . Meconi um. Inacti ve TB. Gross Descri ption: Receiv ed in formal in, labele d with a patien t label and as place nta, is a 17.5 x 16.5 cm placen ta that averag es 2.5 cm in thickn ess. The attach ed membra amber are torn and may be incomp lete. The membra amber are gliste idalmis, semitr ansluc ent to thicke francisca, roper-ye llow, and insert in margin al fashio n. The membra ne site of ruptur e is not defini tively identi fied. The amniot ic membra amber are peeled back over approx imatel y 40% of the surfac e. A 12.0 cm tortuo us, trivas cular umbili j carlos cord averag es 0.9 cm in diamet er and insert s 2.7 cm from the neares t placen larry margin . Separa tely receiv ed is a simila r 14.5 cm umbili j carlos cord segmen t. The placen larry disc weighs 454 g. The surfac e is gliste idalmis, blue-g reen, and appear s fairly poorly vascul arized . The vessel s are predom inantl y thinne d. A 15.0 x 5.5 cm focus of subamn iotic hemorr sunshine extend s from the umbili j carlos cord insert ion site to the placen larry margin . The matern al surfac e is compos ed of intact , spongy roper-re d cotyle dons. Approx imatel y 40% of the matern al surfac e displa ys mild calcif icatio n. Sectio idalmis reveal s no discre te intrap arench ymal lesion s or masses . Sectio ns are submit gene as follow s: 1 membra amber 2 umbili j carlos cord 3 parenc hyma. Gross examin ation (when applic able) [facility] [address], [place] [address]. This case was interp reted and signed out at [facility], [address] [place] [address]. FINAL DIAGNO SIS: Placen ta, third trimes ter, delive ry: -Place ntal disc (454 g) with delaye d villou s matura tion. - membra amber with meconi um laden macrop hages. -Three -vesse l umbili j carlos cord with no signif icant diagno stic abnorm ality. Elec tronic ally Signed Out Jeffery perez M.D. [facility] [address] [facility] [facility], [place] [address] Telep rosemary: , exten harinder 07 Patho logy Repor t Surgi j carlos Patho logy Repor t Name: NYDIA ADAME Speci men #: [id number] Age: [birth year] (Age: 29) Locat ion: [facility] IF Sex: F Proce dure Date: 2023 Hospi larry #: [id number] Date Recei maggi: 2023 Date Repor gene: 2023 Provi miguelina: KIMBE RLY E GREGORIO LE DO MO WHEELER MD [facility] e: Place nta Clini j carlos Histo ry: 39-we ek 4-day gesta tion, . Vagin al deliv tad of femal e infan t. Mecon ium. Inact benny TB. Gross Descr iptio n: Recei maggi in forma fannie, label ed with a patie nt label and as plac enta, is a 17.[address]ta that avera ges 2.5 cm in thick ness. The attac hed membr anes are torn and may be incom plete . The membr anes are glist ening , semit ransl ucent to thick ened, roper-y ellow , and inser t in ramos nal fashi on. The membr ane site of ruptu re is not defin itive ly ident ified . The amnio tic membr anes are zoe d back over appro ximat jennie 40% of the surfa ce. A 12.0 cm tortu ous, triva scula r umbil ical cord avera ges 0.[address] and inser ts 2.7 cm from the neare place ntal ramos n. Separ ately recei maggi is a simil ar 14.5 cm umbil ical cord segme nt. The place ntal disc weigh s 454 g. The surfa ce is glist ening , blue- green , and appea rs fairl y poorl y vascu lariz ed. The vesse ls are predo minan tly thinn ed. A 15.0 x 5.5 cm focus of subam nioti c hemor rhage exten ds from the umbil ical cord inser tion site to the place ntal ramos n. The mater nal surfa ce is compo sed of intac t, spong y roper-r ed cotyl edons . Appro ximat jennie 40% of the mater nal surfa ce displ ays mild calci ficat ion. Secti oning revea ls no discr ete intra paren chyma l lesio ns or dariela s. Secti ons are submi tted as follo ws: 1 membr anes 2 umbil ical cord 3 paren chyma . Gross exami natio n (when appli cable ) was perfo rmed at [facility], [address], [place] [address] . This case was inter prete d and clau d out at [facility], [address] , [place] [address] . FINAL DIAGN OSIS: Place nta, third trime ster, deliv tad: -Plac ental disc (454 g) with delay ed villo us matur ation . 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 -Thre e-ves frieda umbil ical cord with no signi fican t diagn ostic abnor malit y. Iona ctron icall y Clau d Out Jeffery smith M.D. [facility] Not Available Not Available 08/06/2024 14:21:18 04/27/20 24 04/27/2024 CBC W Auto Diffe renti al panel - Blood leukocytes [#/volume] in blood by automated count 12.24 text: 4.5 - 11.0 x10'3/ uL high WBC 12.24 (H) 4.5 - 11.0 x10'3 /uL 04/27 6:33 AM CDT [facility] Not Available Not Available 08/06/2024 14:21:18 04/27/20 24 04/27/2024 CBC W Auto Diffe renti al panel - Blood erythrocytes [#/volume] in blood by automated count 2.99 text: 4.20 - 5.40 x10'6/ uL low RBC 2.99 (L) 4.20 - 5.40 x10'6 /uL 04/27 6:33 AM CDT [facility] Not Available Not Available 08/06/2024 14:21:18 04/27/20 24 04/27/2024 CBC W Auto Diffe renti al panel - Blood hemoglobin [mass/volume ] in blood 9.3 text: 12.0 - 16.0 g/dL low HGB 9.3 (L) 12.0 - 16.0 G/DL 04/27 6:33 AM CDT [facility] Not Available Not Available 08/06/2024 14:21:18 04/27/20 24 04/27/2024 CBC W Auto Diffe renti al panel - Blood hematocrit [volume fraction] of blood 28.3 % low: 38%hig h: 48% low HCT 28.3 (L) 38.0 - 48.0 % 04/27 6:33 AM CDT [facility] Not Available Not Available 08/06/2024 14:21:18 04/27/20 24 04/27/2024 CBC W Auto Diffe renti al panel - Blood MCV [entitic volume] 94.6 text: 81.0 - 99.0 fL MCV 94.6 81.0 - 99.0 FL 04/27 6:33 AM CDT [facility] Not Available Not Available 08/06/2024 14:21:18 04/27/20 24 04/27/2024 CBC W Auto Diffe renti al panel - Blood MCH [entitic mass] 31.1 pg low: 27pghi gh: 31pg high MCH 31.1 (H) 27.0 - 31.0 PG 04/27 6:33 AM CDT [facility] Not Available Not Available 08/06/2024 14:21:18 04/27/20 24 04/27/2024 CBC W Auto Diffe renti al panel - Blood MCHC [mass/volume ] 32.9 text: 32.0 - 36.0 g/dL MCHC 32.9 32.0 - 36.0 G/DL 04/27 6:33 AM CDT [facility] Not Available Not Available 08/06/2024 14:21:18 04/27/20 24 04/27/2024 CBC W Auto Diffe renti al panel - Blood erythrocyte distribution width [entitic volume] by automated count 12.8 % low: 11.5%h igh: 14.5% RDW 12.8 11.5 - 14.5 % 04/27 6:33 AM CDT [facility] Not Available Not Available 08/06/2024 14:21:18 04/27/20 24 04/27/2024 CBC W Auto Diffe renti al panel - Blood platelets [#/volume] in blood 230 text: 130 - 400 x10'3/ uL PLT 230 130 - 400 x10'3 /uL 04/27 6:33 AM CDT [facility] Not Available Not Available 08/06/2024 14:21:18 04/27/20 24 04/27/2024 CBC W Auto Diffe renti al panel - Blood platelet mean volume [entitic volume] in blood 12.3 text: 9.3 - 12.2 fL high MPV 12.3 (H) 9.3 - 12.2 FL 04/27 6:33 AM CDT [facility] Not Available Not Available 08/06/2024 14:21:18 04/27/20 24 04/27/2024 CBC W Auto Diffe renti al panel - Blood differential cell count method - blood AUTOMA GENE DIFFER ENTIAL DIFFE RENTI AL TYPE AUTOM ATED DIFFE RENTI AL 04/27 6:33 AM CDT [facility] Not Available Not Available 08/06/2024 14:21:18 04/27/20 24 04/27/2024 CBC W Auto Diffe renti al panel - Blood neutrophils/ 100 leukocytes in blood by automated count 70.5 % NEUTR OPHIL S % 70.5 % 04/27 6:33 AM CDT [facility] Not Available Not Available 08/06/2024 14:21:18 04/27/20 24 04/27/2024 CBC W Auto Diffe renti al panel - Blood lymphocytes/ 100 leukocytes in blood by automated count 19.9 % LYMPH OCYTE S % 19.9 % 04/27 6:33 AM CDT [facility] Not Available Not Available 08/06/2024 14:21:18 04/27/20 24 04/27/2024 CBC W Auto Diffe renti al panel - Blood monocytes/10 0 leukocytes in blood by automated count 8.3 % MONOC YTES % 8.3 % 04/27 6:33 AM CDT [facility] Not Available Not Available 08/06/2024 14:21:18 04/27/20 24 04/27/2024 CBC W Auto Diffe renti al panel - Blood eosinophils/ 100 leukocytes in blood by automated count 0.7 % EOSIN OPHIL S 0.7 % 04/27 6:33 AM CDT [facility] Not Available Not Available 08/06/2024 14:21:18 04/27/20 24 04/27/2024 CBC W Auto Diffe renti al panel - Blood basophils/10 0 leukocytes in blood by automated count 0.3 % BASOP HILS 0.3 % 04/27 6:33 AM CDT [facility] Not Available Not Available 08/06/2024 14:21:18 04/27/20 24 04/27/2024 CBC W Auto Diffe renti al panel - Blood immature granulocytes /100 leukocytes in blood by automated count 0.3 % IMMAT URE GRANS % 0.3 % 04/27 6:33 AM CDT [facility] Not Available Not Available 08/06/2024 14:21:18 04/27/20 24 04/27/2024 CBC W Auto Diffe renti al panel - Blood neutrophils [#/volume] in blood 8.63 text: 1.80 - 7.70 x10'3/ uL high ABS. NEUTR OPHIL S 8.63 (H) 1.80 - 7.70 x10'3 /uL 04/27 6:33 AM CDT [facility] Not Available Not Available 08/06/2024 14:21:18 04/27/20 24 04/27/2024 CBC W Auto Diffe renti al panel - Blood lymphocytes [#/volume] in blood 2.43 text: 1.00 - 4.80 x10'3/ uL ABS. LYMPH OCYTE S 2.43 1.00 - 4.80 x10'3 /uL 04/27 6:33 AM CDT [facility] Not Available Not Available 08/06/2024 14:21:18 04/27/20 24 04/27/2024 CBC W Auto Diffe renti al panel - Blood monocytes [#/volume] in blood 1.02 text: 0.24 - 0.86 x10'3/ uL high ABS. MONOC YTES 1.02 (H) 0.24 - 0.86 x10'3 /uL 04/27 6:33 AM CDT [facility] Not Available Not Available 08/06/2024 14:21:18 04/27/20 24 04/27/2024 CBC W Auto Diffe renti al panel - Blood eosinophils [#/volume] in blood 0.08 text: 0.04 - 0.36 x10'3/ uL ABS. EOSIN OPHIL S 0.08 0.04 - 0.36 x10'3 /uL 04/27 6:33 AM CDT [facility] Not Available Not Available 08/06/2024 14:21:18 04/27/20 24 04/27/2024 CBC W Auto Diffe renti al panel - Blood basophils [#/volume] in blood 0.04 text: 0.01 - 0.08 x10'3/ uL ABS. BASOP HILS 0.04 0.01 - 0.08 x10'3 /uL 04/27 6:33 AM CDT [facility] Not Available Not Available 08/06/2024 14:21:18 04/27/20 24 04/27/2024 CBC W Auto Diffe renti al panel - Blood immature granulocytes [#/volume] in blood 0.04 text: 0.00 - 0.49 x10'3/ uL ABS. IMMAT URE GRANU LOCYT ES 0.04 0.00 - 0.49 x10'3 /uL 04/27 6:33 AM CDT [facility] Not Available Not Available 08/06/2024 14:21:18 04/27/20 24 04/27/2024 CBC W Auto Diffe renti al panel - Blood interpretati on and review of laboratory results Abnorm al Not Available Not Available 14:21:18 07/09/1907/11/2024 IGP, APT HPV,R FX 16/18 ,45 diagnosis: CHARITY T NEGAT BENNY FOR INTRA EPITH ELIAL JANKI Tamez OR RAMU CHONG . Not Available [facility] ([facility]) [address] [place], [address], 07/11/2024 16:32:34 07/09/19 25 07/11/2024 IGP, APT HPV,R FX 16/18 ,45 specimen adequacy: CHARITY T Satis facto ry for evalu ation . Endoc ervic al and/o r squam ous metap lasti c cells (endo cervi j carlos compo nent) are prese nt. Not Available [facility] ([facility]) [address] [place], [address], 07/11/2024 16:32:34 07/09/19 25 07/11/2024 IGP, APT HPV,R FX 16/18 ,45 clinician provided ICD10: CHARITY Finney Z12.4 Not Available [facility] ([facility]) [address] [place], [address], 07/11/2024 16:32:34 07/09/19 25 07/11/2024 IGP, APT HPV,R FX 16/18 ,45 performed by: CHARITY aviles, Cytoreg finney (ASCP ) Not Available [facility] ([facility]) [address] [place], [address], 07/11/2024 16:32:34 07/09/19 25 07/11/2024 IGP, APT HPV,R FX 16/18 ,45 . . Not Available [facility] ([facility]) [address] [place], [address], 07/11/2024 16:32:34 07/09/19 25 07/11/2024 IGP, APT HPV,R FX 16/18 ,45 note: CHARITY Finney The Pap smear is a scree idalmis test desig francisca to aid in the detec tion of amanda ligna nt and malig nant condi tions of the uteri ne cervi x. It is not a diagn ostic proce dure and shoul d not be used as the sole means of detec ting cervi j carlos cance r. Both false -posi tive and false -nega tive repor ts do occur . Not Available [facility] ([facility]) [address] [place], [address], 07/11/2024 16:32:34 07/09/19 25 07/11/2024 IGP, APT HPV,R FX 16/18 ,45 test methodology: COMMEN T This liqui d based ThinP rep(R ) pap test was scree francisca with the use of an image guide bella cochran. Not Available [facility] ([facility]) [address] [facility], [place], [address], 07/11/2024 16:32:34 07/09/19 25 07/11/2024 IGP, APT HPV,R FX 16/18 ,45 HPV aptima NEGATI VE negati ve This nucle ic acid ampli ficat ion test detec ts fourt een high- risk HPV types (16,1 8,31, 33,35 ,39,4 5,51, 52,56 ,58,5 9,66, 68) witho ut diffe renti ation . Not Available [facility] ([facility]) [address] [place], [address], 07/11/2024 16:32:34 Result Notes None recorded. Problems Name Problem SNOMED Code Status Onset Date Resolution Date Notes Provider Name and Address Organization Details Recorded Time Pregnanc y 78532889 Completed 202305/02/2024 Fatimah Laird RN [facility], [place] - [place] 16:07:02 Tubercul osis suspecte d [id number] Active 2023 [email or web address]. gov/tb/t [email or web address] [email or web address]/p [email or web address] .htm MO HOLCOMB MD Attn: Accounting ,[address], [place], [address] , [place] - [facility] 4 19:21:05 Ureaplas ma urealyti cum culture Completed recommen d 1g single dose of azithrom ycin if cultures in 6-8 weeks persist, will need to tx w/ doxy postpart um MO HOLCOMB MD Attn: Accounting ,[address] [facility], [place], [address] , [place] - [facility] 4 14:03:37 Inactive tubercul osis [id number] Completed 2023 [employer] nadja gold + 4 CXR 01/16/24 show inactive disease - pt opting to wait until after delivery for treatmen t - [facility] referral complete d, OK to wait until after delivery . Low risk for becoming active. Treatmen t for Latent TB Infectio n and Pregnanc y (https:/ /www.cdc .gov/tb/ topic/tr eatment/ pregnanc y.htm) For most women, treatmen t for latent TB infectio n can be delayed until 2 3 months post-par jeanine to avoid administ ering unnecess ana medicati on during pregnanc y. For women who are at high risk for progress ion from latent TB infectio n to TB disease, especial ly those who are a recent contact of someone with infectio us TB disease, treatmen t for latent TB infectio n should not be delayed on the basis of pregnanc y alone, even during the first trimeste r. TB Treatmen t Regimens for Women: Latent TB Infectio n (choose 1) 1.) 4-month daily regimen of rifampin (RIF) (4R) 2.) 6- or 9-month daily regimen of INH (6H or 9H) , with pyridoxi ne (vitamin B6) suppleme ntation MO HOLCOMB MD Attn: Accounting ,[address] [facility], [place], [address] , [place] - [facility] 4 18:39:52 Inactive tubercul osis [id number] Active 2023 [employer] nadja gold + 4 CXR 01/16/24 show inactive disease - pt opting to wait until after delivery for treatmen t - MFM referral complete d, OK to wait until after delivery . Low risk for becoming active. Treatmen t for Latent TB Infectio n and Pregnanc y (https:/ /www.cdc .gov/tb/ topic/tr eatment/ pregnanc y.htm) For most women, treatmen t for latent TB infectio n can be delayed until 2 3 months post-par jeanine to avoid administ ering unnecess ana medicati on during pregnanc y. For women who are at high risk for progress ion from latent TB infectio n to TB disease, especial ly those who are a recent contact of someone with infectio us TB disease, treatmen t for latent TB infectio n should not be delayed on the basis of pregnanc y alone, even during the first trimeste r. TB Treatmen t Regimens for Women: Latent TB Infectio n (choose 1) 1.) 4-month daily regimen of rifampin (RIF) (4R) 2.) 6- or 9-month daily regimen of INH (6H or 9H) , with pyridoxi ne (vitamin B6) suppleme ntation MO HOLCOMB MD Attn: Accounting ,[address] [place], [address] , [place] - [facility] 4 18:39:52 History of uterine inversio n [id number] Completed US@ 32.3w, cephalic , placenta post/fun sharon, YOU 10.2cm, EFW 45%/2001 g. Be prepared for possible recurren t uterine inversio n. MO HOLCOMB MD Attn: Accounting ,[address] [place], [address] , [place] [facility] 4 17:06:02 Problem Notes None recorded. Medical Equipment None Reported. Allergies No known drug allergies Medications Name Sig Start Date Stop Date Status Note LastModified by Organization Details LastModified Time polyethylen e glycol 3350 17 gram oral powder packet MIX 1 PACKET IN 240 ML OF WATER AND DRINK BY MOUTH ONCE DAILY FOR 14 DAYS active Not Available Not Available No t Available isoniazid 300 mg tablet Take 3 tablets every week by oral route with meal(s) for 43 days. 2024 active Not Available Not Available Not Avai lable docusate sodium 100 mg capsule TAKE 1 CAPSULE BY MOUTH EVERY 12 HOURS active Not Available Not Available No t Available Priftin 150 mg tablet Take 4 tablets every week by oral route with meal(s) for 43 days. 2024 active Not Available Not Available Not Avai lable ibuprofen 600 mg tablet active Not Available Not Available Not Available azithromyci n 500 mg tablet Take 2 tablets every day by oral route for 1 day, for vaginal infection . 05/16 completed Not Available Not Available Not Available FeroSul 325 mg (65 mg iron) tablet TAKE 1 TABLET BY MOUTH EVERY OTHER DAY active Not Available Not Available No t Available Stimulant Laxative Plus 8.6 mg-50 mg tablet TAKE 1 TABLET BY MOUTH DAILY NEEDED FOR CONSTIPAT ION active Not Available Not Available No t Available Vitals Date Recorded Body height Body mass index (BMI) Body weight Body temperature Oxygen saturation Oxygen saturation in Arterial blood by Pulse oximetry Heart rate Systolic blood pressure Diastolic blood pressure Provider Name and Address Organization Details Last Updated DateTime 4 170.18 cm 29 kg/m2 19882.5 9 g 97.5 [degF] 97 % 97 % 64 /min 115 mm[Hg] 70 mm[Hg] Irina Garcia MA [place] [facility] 4 16:38:54 Date Recorded Body height Body mass index (BMI) Body weight Heart rate Oxygen saturation Oxygen saturation in Arterial blood by Pulse oximetry Body temperature Systolic blood pressure Diastolic blood pressure Provider Name and Address Organization Details Last Updated DateTime 4 170.18 cm 27.8 kg/m2 20223.9 g 75 /min 97 % 97 % 97.6 [degF] 119 mm[Hg] 72 mm[Hg] Gayle Weinberg [place] [facility] 4 17:31:31 Date Recorded Body height Body mass index (BMI) Body weight Oxygen saturation Oxygen saturation in Arterial blood by Pulse oximetry Heart rate Body temperature Systolic blood pressure Diastolic blood pressure Provider Name and Address Organization Details Last Updated DateTime 4 170.18 cm 27.8 kg/m2 33871.2 5 g 98 % 98 % 80 /min 97.6 [degF] 112 mm[Hg] 76 mm[Hg] Carla Bray MA [facility] 4 12:20:01 Date Recorded Body height Body mass index (BMI) Body weight Heart rate Oxygen saturation Oxygen saturation in Arterial blood by Pulse oximetry Body temperature Systolic blood pressure Diastolic blood pressure Provider Name and Address Organization Details Last Updated DateTime 5 170.18 cm 28.1 kg/m2 28703.7 8 g 62 /min 99 % 99 % 97.6 [degF] 120 mm[Hg] 79 mm[Hg] Gayle Weinberg MA [facility] 5 11:11:17 Date Recorded Body height Body mass index (BMI) Body weight Oxygen saturation Oxygen saturation in Arterial blood by Pulse oximetry Heart rate Systolic blood pressure Diastolic blood pressure Provider Name and Address Organization Details Last Updated DateTime 5 170.18 cm 27.7 kg/m2 85774.4 1 g 98 % 98 % 60 /min 128 mm[Hg] 82 mm[Hg] Amie Hodge MA [facility] 5 17:17:08 Social History Question Answer Notes LastModified by Organizat ion Details LastModified Time Tobacco Smoking Status Never Smoker Gayle Weinberg MA null, [facility] 12/19/2023 17:19:19 What Is Your Level Of Alcohol Consumption? None Information not available 08/22/2024 What Was The Date Of Your Most Recent Tobacco Screening? 08/22/2024 Information not available 08/22/2024 Do You Use Any Illicit Or Recreational Drugs? No Information not available 08/22/2024 Do You Or Have You Ever Used Any Other Forms Of Tobacco Or Nicotine? No [email or web address] Information not available 12/19/2023 Sex: Unknown Functional Status None recorded. Mental Status None recorded. Family History Nothing Reported. Medical History No medical history recorded. Gynecological HistoryNo gynecological history recorded. Obstetrics History GPAL:G 2 P 2 0 0 2 Type Value Multiple Births 0 Full Term 2 Induced 0 Spontaneous 0 Premature 0 Living 2 Ectopics 0 Total 2 Immunizations Vaccine Type Date Status Note Provider Nam e and Address Organization Details Recorded Time RSV, bivalent, protein subunit RSVpreF, diluent reconstituted, 0.5 mL, PF 03/28/2024 completed MO HOLCOMB MD Attn: Accounting,[address], [place], [address], [facility] - [facility] 04/24/2024 18:32:56 Tdap 02/20/2024 completed Carla Bray MA null, [place] - [facility] 02/20/2024 12:16:21 Influenza, split virus, trivalent, PF 03/21/2024 completed NERIS CHAHAL DO Attn: Accounting,[address], [place], [address], [facility] - [facility] 03/22/2024 11:36:59 Past Encounters Encounter ID Performer Location Encounter Start Date Encounter Closed Date Diagnosis/Indication Diagnosis SNOMED-CT Code Diagnosis ICD10 Code Diagnosis Note [id number] Juanis Pearce MD [facility] [address] [address] 11/16/2023 09:59:30 11/24/2023 12:27:44 Routine care 097770238 Z34.89 yo G{{1 2* 3 4 5 6 7 8 9}}P{{0 1* 2 3 4 5 6 7 8 9}}{{ 0* 1 2 3 4 5 6 7 8 9 }}{{0* 1 2 3 4 5 6 7 8 9}}{{0 1* 2 3 4 5 6 7 8 9}} femaleHigh -risk ? : {{no* yes} }Dating US consistent with LMP: {{yes* no not done}}copi es taken but accidental ly placed into folder with patientUS from [place] did show crown rump 4.13cm with dating consistent with LMPFinal AXEL: {{Jun Ma y Nov Nov* D ec}}{{1 2 3 4* 5 6 7 8 9 10 11 12 13 14 15 16 17 1 8 19 20 21 22 23 24 25 26 27 2 8 30 31}}{ {2021 2022 2023*}} based on {{1st trimester US 2nd trimester US 3rd trimester US LMP 1st trimester US and LMP#}} PMH: NA complicate d by: previous sinus infection (treated with Augmentin) and UTI (treated with macrobid) Rh: pending : {{no* yes} } IPN labs: pending Abnormal lab: NA Plan for abnormal results if indicated: treat appropriat jennie 2nd trimester US: {{normal a bnormal no t done sched uled order ed*}} Total weight gain: 5lbs Recommende d weight gain: {{BMI <18.5 28-40 lbs BMI 18.5-24.9 25-35 lbs* BMI 25-29.9 15-25 lbs BMI >30 11-20}}Go al weight: 188-198 Discussed genetic testing (Quad screen, NIPT, CF, SMA): pt agreed, pending Flu vaccine: {{UTD decl ined given today will offer in season Jan-September* }} Covid vaccine: will ask at upcoming appt [facility] referral: NoHealthy Start referral: {{no yes*} }Behaviora l Health: {{no* yes} } Follow-up: {{1 2 3 4* 5 6 7 8 9 10 11 12 13}}{{days week{s}* month(s)}} History of urinary tract infection 9994608503 107 Z87.440 Pt had UTI in first trimester, [place] [facility] [id number] LATHA LOO DO [facility] [address] [address] 12/19/2023 17:14:04 12/20/2023 15:21:10 Routine care 973439981 Z34.92 28 yo G{{1 2* 3 4 5 6 7 8 9}}P1001 femaleEDD: {{Jun Ma y Nov Nov* D ec}}{{1 2 3 4* 5 6 7 8 9 10 11 12 13 14 15 16 17 1 8 19 20 21 22 23 24 25 26 27 2 8 30 31}} 2023 based on {{1st trimester US* 2nd trimester US 3rd trimester US LMP}} and LMP PMH:Pregna ncy complicate d by: h/o sinus infection and UTI adequately treated with abx, and UA positive for ureaplasma perRh: {{positive * negative }}: {{no* yes} }IPN labs: {{normal a bnormal*}} Quantifero n TB positive, CXR ordered by Dr. Leonard. Scheduled for 12/19/23.Ab normal lab: {{none blo od count plat elets HbSA g RPR Anti body screen Rh negative U A urine culture Ru bellea Non-Immune sickle cell UDS w et prep GC ch lamydia go norrhea tr ichomonas CF pap}}{{ none blood count plat elets HbSA g RPR Anti body screen Rh negative U A urine culture Ru [place] Non-Immune sickle cell UDS w et prep GC ch lamydia go norrhea tr ichomonas CF pap}}{{ none blood count plat elets HbSA g RPR Anti body screen Rh negative U A urine culture Ru bellea Non-Immune sickle cell UDS w et prep GC ch lamydia go norrhea tr ichomonas CF pap}}Pl an for abnormal results if indicated: BMI*: {{normal 2 5-30* grea ter than 30}}*If BMI is greater than 30, place nutrition referral and order early GTT/A1cDep ression screen: {{negative positive} } Will perform at next visit.Flu shot: {{given de clined to be given in season Jan-Aug*}} 1st trimester US: {{normal* abnormal n ot done}} Reviewed records from [place] patient brought.2n d trimester US: {{normal* abnormal n ot done}} Repeat US scheduled for 01/04/24.Gerald campos does NOT want to know the sex of the baby.MSAFP : {{negative * positive will order at 15-19 weeks coun seling done, ordered co unseling done, declined t oo late to care}}CF screen: {{negative * positive declined not done}}28 weeks: CBC: {{normal a bnormal or dered decl ined}}, GTT: {{normal a bnormal or dered decl ined}}, TdaP: {{normal a bnormal or dered decl ined}}32 weeks: high risk STI: {{yes, order repeat STI screening no}}35-37 weeks: GBS: {{negative positive collected} }, Vertex confirmed w/ bedside US: {{yes no}} RTC in 1 month for GIANA visit. [id number] MO HOLCOMB MD [place] [address] [address] [address] 01/16/2024 15:14:28 01/26/2024 13:47:49 Routine care 245048572 Z34.89 yo G{{1 2* 3 4 5 6 7 8 9}}P{{0 1* 2 3 4 5 6 7 8 9}}{{ 0* 1 2 3 4 5 6 7 8 9 }}{{0* 1 2 3 4 5 6 7 8 9}}{{0 1* 2 3 4 5 6 7 8 9}} femaleHigh -risk ? : {{no* yes} }Dating US consistent with LMP: {{yes* no not done}}US from [place] did show crown rump 4.13cm with dating consistent with LMPFinal AXEL: {{Jun Ma y Nov* D ec}}{{1 2 3 4* 5 6 7 8 9 10 11 12 13 14 15 16 17 1 8 19 20 21 22 23 24 25 26 27 2 8 30 31}}{ {2021 2022 2023*}} based on {{1st trimester US 2nd trimester US 3rd trimester US LMP 1st trimester US and LMP#}} PMH: NA complicate d by: previous sinus infection (treated with Augmentin) and UTI (treated with macrobid) Rh: pending : {{no* yes} } IPN labs: pending Abnormal lab: NA Plan for abnormal results if indicated: treat appropriat jennie 2nd trimester US: {{normal* abnormal n ot done sched uled order ed}} has repeat scheduled to complete Total weight gain: 9# Recommende d weight gain: {{BMI <18.5 28-40 lbs BMI 18.5-24.9 25-35 lbs* BMI 25-29.9 15-25 lbs BMI >30 11-20}}Go al weight: 188-198 Discussed genetic testing (Quad screen, NIPT, CF, SMA): pt agreed, pending Flu vaccine: {{UTD decl ined given today will offer in season Jan-September* }} Covid vaccine: will ask at upcoming appt MFM referral: NoHealthy Start referral: {{no yes*} }Behaviora l Health: {{no* yes} } Follow-up: {{1 2 3 4* 5 6 7 8 9 10 11 12 13}}{{days week{s}* month(s)}} Urinary tr act infection in 829072775 O23.41 UTI in first trimester, treated with macrobidTO C 11/15 Tuberculos is in 518384364 O98.019 Reviewed and confirmed that quantifero n gold is gold standard for detecting TB, despite possibilit y of having BCG vaccine. CXR will confirm only latent vs active TB.- Consider possibly repeating quant gold for TB testing. Patient reports testing negative in August and has not been around anyone with active disease.- CXR read as negative for TB [id number] MO HOLCOMB MD [facility] [address] [facility] [address] [place] [address] 02/20/2024 11:07:56 02/27/2024 09:54:42 Active or passive immunization 647123579 Z23 Routine an tenatal care 245107749 Z34.93 Assessment :Romansh Interprete r: 159448pk G{{1 2* 3 4 5 6 7 8 9}}P{{0 1* 2 3 4 5 6 7 8 9}}{{ 0* 1 2 3 4 5 6 7 8 9 }}{{0* 1 2 3 4 5 6 7 8 9}}{{0 1* 2 3 4 5 6 7 8 9}} female here for routine care. Chronic problems: complicate d by UTI treated, [facility] 11/15, Latent TB, and ureaplasma infection Current weight:Goa l weight: 188-198 Immunizati on status: {{up to date* decl ined order ed}} Anatomy ULTRASOUND Date: 01/04/2024 Gestation al Age: 23.3w EFW (percentag e: 70% Placenta location: posterior Cervical length: 5.5cm Anatomic findings: {{normal* abnormal}} Additiona l comments: Plan:-Patsy ent appropriat e to be followed by {{IVAN Resi dent* Atte nding FMOB OB MFM}}- Problems as below-ASA: {{yes no*} }-Imaging: {{reviewed * ordered scheduled} }. F/u to be reschedule d by patient.-L ab (28wk order set): {{reviewed ordered*} }-GBS: {{reviewed ordered}} -RH status: {{reviewed * treated} }-immuniza tions given: Tdap given on 02/20/2024 --Weight gain reviewed recommende d: {{BMI 18: 30-40 lbs BMI 19-25: 25-35lbs* BMI 26-30: 15-25lbs B ND >30: 10-20lbs}} --Referral s: MFM for latent TB--Health y start, Education given today on:[] movement and kick counts reviewed[] Pre-eclamp karlee and pre-term labor precaution s reviewed[] Reviewed labor expectatio ns (anesthesi a, support people)[] Reviewed labor precaution s Mycoplasma species or Ureaplasma urealyticum 029056129 R89.5 +ureaplasm a on 02/19 swab Gestation period, 30 weeks 65939656 Z3A.30 IUP, by FTM in [place]- O+/RI/GBS pending- 28w labs completed- Tdap completed- complicate d by latent TB. Choosing to treat Inactive tuberculosis 11 845936 Z22.7 Quantifero n gold + 4C XR 01/16/24 show inactive disease- pt opting to wait until after delivery for treatment- MFM referral placed as she continues [place] and [place] and has increased chance of exposure and progressio n to active disease Treatment for Latent TB Infection and ( https://ww w.cdc.gov/ tb/topic/t reatment/p verncy.h tm)For most women, treatment for latent TB infection can be delayed until 2 3 months post-partu m to avoid administer ing unnecessar y medication during . For women who are at high risk for progressio n from latent TB infection to TB disease, especially those who are a recent contact of someone with infectious TB disease, treatment for latent TB infection should not be delayed on the basis of alone, even during the first trimester. TB Treatment Regimens for Women:Late nt TB Infection (choose 1)1.) 4-month daily regimen of rifampin (RIF) (4R)2.) 6- or 9-month daily regimen of INH (6H or 9H) , with pyridoxine (vitamin B6) supplement ation [id number] MO HOLCOMB MD [facility] [address] [address] 03/08/2024 09:21:20 03/18/2024 11:05:13 Routine care 644848135 Z34.89 yo G{{1 2* 3 4 5 6 7 8 9}}P{{0 1* 2 3 4 5 6 7 8 9}}{{ 0* 1 2 3 4 5 6 7 8 9 }}{{0* 1 2 3 4 5 6 7 8 9}}{{0 1* 2 3 4 5 6 7 8 9}} femaleHigh -risk ? : {{no* yes} }Dating US consistent with LMP: {{yes* no not done}}US from [place] did show crown rump 4.13cm with dating consistent with LMPFinal AXEL: {{Jun y Nov* D ec}}{{1 2 3 4* 5 6 7 8 9 10 11 12 13 14 15 16 17 1 8 19 20 21 22 23 24 25 26 27 2 8 30 31}}{ {2021 2022 2023*}} based on {{1st trimester US 2nd trimester US 3rd trimester US LMP 1st trimester US and LMP#}} PMH: hx of previous uterine inversion that required manual replacemen t, but denied further complicati on complicate d by: previous sinus infection (treated with Augmentin) , UTI (treated with macrobid), ureaplasma infection (treated with azithromyc in), hx of previous uterine inversion, and inactive TB infection (to be treated post ) Rh: pending : {{no* yes} } IPN labs: WNL apart from quant gold Abnormal lab: positive quant gold Plan for abnormal results if indicated: quant gold is not interfered with previous BCG vaccinatio n; MFM consulted. See below for details 2nd trimester US: {{normal* abnormal n ot done sched uled order ed}}US@ 32.3w, cephalic, placenta post/kamron l, YOU 10.2cm, EFW 45%/2001g. Be prepared for possible recurrent uterine inversion. Total weight gain: 12#Recomme nded weight gain: {{BMI <18.5 28-40 lbs BMI 18.5-24.9 25-35 lbs* BMI 25-29.9 15-25 lbs BMI >30 11-20}}Go al weight: 188-198 Discussed genetic testing (Quad screen, NIPT, CF, SMA): unable to be completed 2/2 missing informatio n Flu vaccine: will ask at upcoming appt Covid vaccine: will ask at upcoming appt RSV vaccine: will ask at upcoming appt MFM referral: yesHealthy Start referral: {{no yes*} }Behaviora l Health: {{no* yes} } Follow-up: {{1 2* 3 4 5 6 7 8 9 10 11 12 13}}{{days week{s}* month(s)}} Mycoplasma species or Ureaplasma urealyticum [id number] R89.5 +ureaplasm a on 02/19 swab- treated with azithromyc in Inactive tuberculosis 11 486554 Z22.7 Quantifero n gold + 4C XR 01/16/24 show inactive disease- pt opting to wait until after delivery for treatment- Saw MFM 03/07, after clarifying over the phone with MF, they agree patient can treat TB post Plan to treat appropriat jennie post-partu m Gestation period, 32 weeks 1436010 Z3A.32 IUP, by FTM in [place]- O+/RI/GBS pending- 28w labs completed- Tdap completed- Pending FLU, COVID, and RSV vaccines- complicate d by inactive TB. Choosing to treat ; after discussing over the phone with MFM, they agree patient can treat TB post History of uterine inversion 448912756 Z87.59 Reports uterine inversion with previous delivery that was manually replaced without further complicati on- Be prepared for possible repeat uterine inversion [id number] MO HOLCOMB MD [place] [address] [address] [address] 03/21/2024 10:39:38 03/28/2024 09:55:35 Routine care 674062191 Z34.89 yo G{{1 2* 3 4 5 6 7 8 9}}P{{0 1* 2 3 4 5 6 7 8 9}}{{ 0* 1 2 3 4 5 6 7 8 9 }}{{0* 1 2 3 4 5 6 7 8 9}}{{0 1* 2 3 4 5 6 7 8 9}} femaleHigh -risk ? : {{no* yes} }Dating US consistent with LMP: {{yes* no not done}}US from [place] did show crown rump 4.13cm with dating consistent with LMPFinal AXEL: {{Jun Ma y Nov Nov* D ec}}{{1 2 3 4* 5 6 7 8 9 10 11 12 13 14 15 16 17 1 8 19 20 21 22 23 24 25 26 27 2 8 30 31}}{ {2021 2022 2023*}} based on {{1st trimester US 2nd trimester US 3rd trimester US LMP 1st trimester US and LMP#}} PMH: hx of previous uterine inversion that required manual replacemen t, but denied further complicati on complicate d by: previous sinus infection (treated with Augmentin) , UTI (treated with macrobid), ureaplasma infection (treated with azithromyc in), hx of previous uterine inversion, and inactive TB infection (to be treated post ) Rh: positive : {{no* yes} } IPN labs: WNL apart from quant gold Abnormal lab: positive quant gold Plan for abnormal results if indicated: quant gold is not interfered with previous BCG vaccinatio n; MFM consulted. See below for details 2nd trimester US: {{normal* abnormal n ot done sched uled order ed}}US@ 32.3w, cephalic, placenta post/kamron l, YOU 10.2cm, EFW 45%/2001g. Be prepared for possible recurrent uterine inversion. Total weight gain: 12#Recomme nded weight gain: {{BMI <18.5 28-40 lbs BMI 18.5-24.9 25-35 lbs* BMI 25-29.9 15-25 lbs BMI >30 11-20}}Go al weight: 188-198 Discussed genetic testing (Quad screen, NIPT, CF, SMA): unable to be completed 2/2 missing informatio n Flu vaccine: yes Covid vaccine: declined RSV vaccine: planned MFM referral: yesHealthy Start referral: {{no yes*} }Behaviora l Health: {{no* yes} } Follow-up: {{1 2* 3 4 5 6 7 8 9 10 11 12 13}}{{days week{s}* month(s)}} - labor precaution s given- Ask at next appt if patient is needing/wa nting breast pump Mycoplasma species or Ureaplasma urealyticum [id number] R89.5 +ureaplasm a on 02/19 swab- treated with azithromyc in Inactive tuberculosis 11 954339 Z22.7 Quantifero n gold + 4C XR 01/16/24 show inactive disease- pt opting to wait until after delivery for treatment- Saw MFM 03/07, after clarifying over the phone with MFM, they agree patient can treat TB post Plan to treat appropriat jennie post-partu m History of uterine inversion 811402359 Z87.59 Reports uterine inversion with previous delivery that was manually replaced without further complicati on- Be prepared for possible repeat uterine inversion Administra tion of influenza vaccine 53419122 Z23 Gestation period, 34 weeks 11842830 Z3A.34 IUP, by FTM in [place]- O+/RI/GBS needs to be drawn at next visit- 28w labs completed- Tdap completed- Flu completed- Pending RSV vaccine- complicate d by inactive TB. Choosing to treat ; after discussing over the phone with MF, they agree patient can treat TB post [id number] MO HOLCOMB MD [facility] [address] [place] [address] [place] [address] 04/05/2024 11:42:26 04/11/2024 10:58:57 Routine care 787653843 Z34.92 28 yo G{{1 2* 3 4 5 6 7 8 9}}P1001 femaleEDD: {{Jun Ma y Nov Nov* D ec}}{{1 2 3 4* 5 6 7 8 9 10 11 12 13 14 15 16 17 1 8 19 20 21 22 23 24 25 26 27 2 8 30 31}} 2023 based on {{1st trimester US* 2nd trimester US 3rd trimester US LMP}} and LMP PMH:Pregna ncy complicate d by: inactive TB, uterine inversion with prior delivery, h/o sinus infection and UTI adequately treated with abx, and UA positive for ureaplasma , which is part of normal jolie.Rh: {{positive * negative }}: {{no* yes} }IPN labs: {{normal a bnormal*}} Quantifero n TB positive, CXR negative 01/16/24.Ab normal lab: {{none blo od count plat elets HbSA g RPR Anti body screen Rh negative U A urine culture Ru bellea Non-Immune sickle cell UDS w et prep GC ch lamydia go norrhea tr ichomonas CF pap Derick nt Gold#}}{{n one blood count plat elets HbSA g RPR Anti body screen Rh negative U A urine culture Ru [place] Non-Immune sickle cell UDS w et prep GC ch lamydia go norrhea tr ichomonas CF pap}}{{ none blood count plat elets HbSA g RPR Anti body screen Rh negative U A urine culture Ru belle[place] Non-Immune sickle cell UDS w et prep GC lamydia go norrhea tr ichomonas CF pap}}Pl an for abnormal results if indicated: BMI*: {{normal 2 5-30* grea ter than 30}}*If BMI is greater than 30, place nutrition referral and order early GTT/A1cDep ression screen: {{negative * positive }}Flu shot: {{given* d eclined to be given in season Jan-Aug}} RSV given at [facility] trimester US: {{normal* abnormal n ot done}} Reviewed records from [place] patient brought.2n d trimester US: {{normal* abnormal n ot done}} Having a daughter.U S 03/07/24: EFW 45%, BPD 84%. HC 24%. concern for possible recurrent uterine inversion. MSAFP: {{negative * positive will order at 15-19 weeks coun seling done, ordered co unseling done, declined t oo late to care}}11/15 Quad screened negative.C F screen: {{negative * positive declined not done}}28 weeks: CBC: {{normal* abnormal o rdered dec lined}}, GTT: {{normal* abnormal o rdered dec lined}}, TdaP: {{normal* abnormal o rdered dec lined}}32 weeks: high risk STI: {{yes, order repeat STI screening no*}} HIV and RPR negative 02/20/24. In monogamous relationsh ip with . Low risk.35-37 weeks: GBS: {{negative positive collected* }}, Vertex confirmed w/ bedside US: {{yes* no} } RTC in 1 week for GIANA visit.Dr. Green will be pediatrici an for patient's daughter. [id number] Sydney Denton MD [facility] [address] [facility] [address] [place] [address] 04/18/2024 11:09:48 05/24/2024 15:34:27 Routine care 398906126 Z34.93 28 yo female AXEL: 2023 based on 1st trimester US and LMP. AXEL 04/29/2024 complicate d by: Inactive TB, uterine inversion with prior delivery, h/o sinus infection and UTI adequately treated with abx, and UA positive for ureaplasma , which is part of normal jolie. Rh: positive : no IPN labs: abnormal Quantifero n TB positive, CXR negative 01/16/24. Abnormal lab: Quant Gold __ Plan for abnormal results if indicated: BMI*: 25-30 *If BMI is greater than 30, place nutrition referral and order early GTT/A1c Depression screen: negative Flu shot: given RSV given at [facility] 03/28/24 1st trimester US: normal Reviewed records from [facility] patient brought. 2nd trimester US: normal Having a daughter. US 03/07/24: EFW 45%, BPD 84%. HC 24%. concern for possible recurrent uterine inversion. MSAFP: negative 11/16/23 Quad screened negative. CF screen: negative 28 weeks: CBC: normal, GTT: normal, TdaP: normal 32 weeks: high risk STI: no HIV and RPR negative 02/20/24. In monogamous relationsh ip with . Low risk. 35-37 weeks: GBS: collected, Vertex confirmed w/ bedside US: yes - Vertex scan today in clinic- Cervical check: Closed cervix, soft consistenc y and -3 station- Pt signed consent to schedule for the elective induction after 40 weeks. Will coordinate with L&D Desk for the appropriat e date- RTC in 1 week for GIANA visit. [id number] MO HOLCOMB MD [place] [address] [address] 04/23/2024 10:15:53 04/25/2024 14:21:45 Routine care [id number] Z34.93 28 yo female AXEL: 2023 based on 1st trimester US and LMP. AXEL 04/29/2024 complicate d by: Inactive TB, uterine inversion with prior delivery, h/o sinus infection and UTI adequately treated with abx, and UA positive for ureaplasma , which is part of normal jolie. Rh: positive : no IPN labs: abnormal Quantifero n TB positive, CXR negative 01/16/24. Abnormal lab: Quant Gold __ Plan for abnormal results if indicated: BMI*: 25-30 *If BMI is greater than 30, place nutrition referral and order early GTT/A1c Depression screen: negative Flu shot: 03/21RSV: given at [facility] 03/28/24Tda p 02/19 1st trimester US: normal Reviewed records from [facility] patient brought. 2nd trimester US: normal Having a daughter. US 03/07/24: EFW 45%, BPD 84%. HC 24%. concern for possible recurrent uterine inversion. MSAFP: negative 11/16/23 Quad screened negative. CF screen: negative 28 weeks: CBC: normal, GTT: normal, TdaP: normal 32 weeks: high risk STI: no HIV and RPR negative 02/20/24. In monogamous relationsh ip with . Low risk. 35-37 weeks: GBS: negative, Vertex confirmed w/ bedside US: yes - Vertex scan today in clinic- Does not want epidural- Does not want contracept ion- Per pt, discussed induction in the previous visit. States plan is to schedule induction if she does not deliver by 04/29- RTC in 1 week for GIANA visit. Gestation period, 39 weeks [id number] Z3A.39 Flu shot: 03/21RSV: given at [facility] 03/28/24Tda p 02/19 History of uterine inversion [id number] Z87.59 US@ 32.3w, cephalic, placenta post/kamron l, YOU 10.2cm, EFW 45%/2001g. Be prepared for possible recurrent uterine inversion. Inactive tuberculosis 11 Z22.7 Quantifero n gold + 4C XR 01/16/24 show inactive disease- pt opting to wait until after delivery for treatment- MFM referral confirms treatment OK after delivery. Low risk for becoming active. [id number] MO HOLCOMB MD [place] [address] 3 [facility] [address] [place] [address] 04/30/2024 16:22:16 05/06/2024 11:39:16 care [id number] Z39.0 Assessment : Pt is a 29 yo F (full GP s) who delivered byVD at 39wks 4d. complicate d by Inactive TB, uterine inversion with prior delivery, h/o sinus infection and UTI adequately treated with abx, and UA positive for ureaplasma , which is part of normal jolie. Deliveryco mplicated by 2nd dgree perineal lac and gHTN. QBL 450.b Reviewed vital signs, weight loss 9 lbsc. BP check at 3 days and 14 days for gHTN e. 6 wk check for routine f. Live vaccines (MMR, varicella- 2 part series) and other vaccinesg. Labs to follow up on:i. Pap smear h. Breast and bottle feedingi. EPDS, intimate partner violence screenj. education including: sexual activity,c ontracepti on/abstine nce/pregna ncy interval plans, breastfeed ing and signs of engorgemen t/mastitis , return to activity, return to work, blues/depr ession/psy chosisPlan s to use condoms for contracept ion Inactive tuberculosis 11 Z22.7 Three months of once-weekl y isoniazid plus rifapentin e (3HP) Waiting 2 months to start the weekly INH and rifapentin e. Rifapentin e Six 150 mg tablets per week for 3 months and three 300 mg tablets of INH per week for 3 monthsMust breastfeed 2 hours prior to taking the medicines. [id number] Juanis Pearce MD [place] [address] 3 [facility] [address] [place] [address] 05/16/2024 17:19:58 05/22/2024 12:33:37 care [id number] Z39.0 Assessment : Pt is a 29 yo F (full GP s) who delivered bySVD at 39wks 4d. complicate d by Inactive TB, uterine inversion with prior delivery, h/o sinus infection and UTI adequately treated with abx, and UA positive for ureaplasma , which is part of normal jolie. Deliveryco mplicated by 2nd dgree perineal lac and gHTN. QBL 450.b Reviewed vital signs, weight loss 9 lbsc. BP check at 3 days and 14 days for gHTN BP <140/90 at both 3 days and 14 days. e. 6 wk check for routine f. Live vaccines (MMR, varicella- 2 part series) and other vaccinesg. Labs to follow up on:i. Pap smear h. Breast and bottle feedingi. EPDS, intimate partner violence screenj. education including: sexual activity,c ontracepti on/abstine nce/pregna ncy interval plans, breastfeed ing and signs of engorgemen t/mastitis , return to activity, return to work, blues/depr ession/psy chosisPlan s to use condoms for contracept ion management [id number] Z39.1 Advised patient purchase cookies and tea to assist with milk production . [id number] MO HOLCOMB MD [facility] [address] [address] 06/04/2024 12:04:22 06/07/2024 12:27:29 care [id number] Z39.0 Assessment : Pt is a 29 yo F (full GP s) who delivered bySVD at 39wks 4d. complicate d by Inactive TB, uterine inversion with prior delivery, h/o sinus infection and UTI adequately treated with abx, and UA positive for ureaplasma , which is part of normal jolie. Deliveryco mplicated by 2nd dgree perineal lac and gHTN. QBL 450.b Reviewed vital signs, weight loss 9 lbsc. BP check at 3 days and 14 days for gHTN BP <140/90 at both 3 days and 14 days and at 6 weeks. e. 6 wk check for routine f. Live vaccines (MMR, varicella- 2 part series) and other vaccinesg. Labs to follow up on:i. Pap smear h. Breast and bottle feedingi. EPDS, intimate partner violence screenj. education including: sexual activity,c ontracepti on/abstine nce/pregna ncy interval plans, breastfeed ing and signs of engorgemen t/mastitis , return to activity, return to work, blues/depr ession/psy chosisPlan s to use condoms for contracept ion. management 278 [id number] Z39.1 Advised patient purchase cookies and tea to assist with milk production . Patient reports going well. [id number] Juancarlos Wan MD [address] [address] 07/09/2024 10:58:45 07/10/2024 14:51:54 Inactive tuberculosis [id number] Z22.7 Patient has the pills and discussed adverse effects, dosing and the dosing log, and gave administra tion instructio ns in Romansh.Th ree months of once-weekl y isoniazid plus rifapentin e (3HP) Rifapentin e Six 150 mg tablets per week for 3 months and three 300 mg tablets of INH per week for 3 monthsMust breastfeed /pump 2 hours prior to taking the medicines and 2 hours after meds. RTC 3 months to check logs. Screening for malignant neoplasm of cervix [id number] Z12.4 [id number] Miah Emerson MD [address] [address] 08/22/2024 17:08:45 08/23/2024 16:25:44 Inactive tuberculosis 22653304 Z22.7 Patient has the pills and discussed adverse effects, dosing and the dosing log, and gave administra tion instructio ns in Romansh.Th ree months of once-weekl y isoniazid plus rifapentin e (3HP) (priftin)R ifampin is contraindi cated in breastfeed ing mothers. Rifapentin e Six 150 mg tablets per week for 12 weeks (3 months) and three 300 mg tablets of INH per week for 12 weeks (3 months). When speaking with patient on phone 07/09/24 patient reported she did not start taking the medication s until July 11, 2024, missed week of 08/09/24 due to shortage. so EOT would be around 10/04.Must breastfeed /pump 2 hours prior to taking the medicines and 2 hours after meds. RTC 3 months to check logs. Health Concerns Section Related Observation LastModified by Organization Detai ls LastModified Time None Recorded Concern Status LastModified by Organization Details LastModified Time None Recorded Advance Directives Directive None Recorded Payers Encounter Date Sequence Insurance Name Policy Number Policy Boudreaux Covered Member ID Boudreaux Member ID Guarantor Name 04/30/2024 1 [place] [employer] [place] [employer] Karina Magana Quigley [id number] Karina Magana Quigley 05/16/2024 1 [place] Karina Magana Quigley [id number] Karina Magana Quigley 06/04/2024 1 [place] Karina Magana Quigley [id number] Karina Magana Quigley 07/09/2024 1 [place] Karina Magana Quigley [id number] Karina Magana Quigley 08/22/2024 1 [place] [facility] [place] [facility]ID Karina Magana Quigley [id number] Karina Magana Quigley Notes Date Note Type Note Provider Name and Address Organization Details Recorded Time 04/30/2024 text/html 29 YO F delivered at 39w4d via . c/b Inactive TB, uterine inversion with prior delivery, h/o sinus infection and UTI adequately treated with abx, and UA positive for ureaplasma, which is part of normal jolie. Delivery c/b 2nd degree perineal lac repaired under local. c/b gHTN. Patient reports having RAYMUNDO 04/30/24 and did not take acetaminophen, but it resolved with rest. Patient denies CP, SOB, pain over RUQ. Patient denies dysuria and constipation. MO HOLCOMB MD Attn: [employer],[address] [place], [address], [place] 05/05/2024 14:32:30 05/16/2024 text/html Patient denies RAYMUNDO, CP, SOB.COncerned about milk production. Using formula and breast milk. Juanis Pearce MD Attn: [facility],[address] [facility], [place], [address], [facility] 05/18/2024 17:17:06 06/04/2024 text/html 29 YO F presents for f/u. Patient reports breast feeding and pump going well.Patient denies RAYMUNDO, CP, SOB, cough, and breast pain. Patient feels safe in her home. Patient reports small amount of blood that smells similar to menstrual blood, 1.5 tbsp blood every 24 hours. Patient denies vaginal discharge. Patient denies feelings of depression or anxiety. Patient reports she is happy. MO HOLCOMB MD Attn: [facility],[address] [place], [address], [facility] 06/05/2024 19:18:57 07/09/2024 text/html 29 YO F presents for f/u and to discuss starting TB meds. Has rx for INH and priftin.Denies fever, cough other acute concerns. Juancarlos Wan MD Attn: [facility],[address] [place], [address], [facility] 07/10/2024 11:28:47 08/22/2024 text/html 29 YO F presents for f/u of TB meds. Rx sent for INH and priftin. Patient had difficulty getting priftin due to shortages at pharmacy. Patient started taking meds June 2024.Missed 1 week due to inability to get priftin.Denies fever, chills, CP, SOB.Reports yellow-orange urine. Denies dysuria. Miah Emerson MD Attn: [facility],[address] [place], [address], [facility] 08/22/2024 20:30:04 OBGyn Episode Ob Episode Information Episode Created Date Number of Fetuses Patient Bloodtype Patient rh Status Prepregnancy Weight lbs Domestic Partner Domestic Partner Phone Father Name [employer] Status 11/16/19 24 1 O Positive 163 Luis Miguel Ma Bustamante CLOSED Fetus Data First Name Last Name Admitted to NICU Weight (g) Sex Living Outcome Pediatric Complications Fetus ID Race Codes Race Delivery Type Tracy rosado Magana false [id number] F true Full Term [id number] 1-1 Other Race Standard Vaginal Delivery Problems Problem Notes , oldest son in 9, no ot her complications in this apart from sinusitis for which she took Augmentin and UTI for which she took nitrofurantoinPast hx significant for involution of uterus during delivery of placenta, no concerns with hemorrhage, pressures, or dystocia. Son was ~2950g Problem Name Start Date End Date Resolution Snomed Code Not e Inactive tuberculosis 02/23/2024 [id number] Quantiferon gol d + 4CXR 01/16/24 show inactive disease- pt opting to wait until after delivery for treatment- MFM referral completed, OK to wait until after delivery. Low risk for becoming active. Treatment for Latent TB Infection and (https://www.cdc.gov/t b/topic/treatment/preg molly.htm) For most women, treatment for latent TB infection can be delayed until 2 3 months post- to avoid administering unnecessary medication [...] 9H) , with pyridoxine (vitamin B6) supplementation History of uterine inversion [id number] US@ 32.3w, [facility], placenta post/fundal, YOU 10.2cm, EFW 45%/2001g. Be prepared for possible recurrent uterine inversion. Ureaplasma urealyticum culture [id number] recommen d 1g single dose of azithromycin if cultures in 6-8 weeks persist, will need to tx w/ doxy Axel Calculation Initial Axel Date Initial Exam Date Initial Exam Provider Initial Ultrasound Date Last Menstrual Period Date Ultra Sound Weeks Gestation 04/29/2024 11/16/2023 [email or web address] 10/13/2023 07/24/2023 10 Eighteen To Twenty Week Axel Update Ultra Sound Date Fundal Height At Umbil Quickening Date Ultra Sound Latest Weeks Gestation Final Axel Confirmed By Final Axel Confirmed Date Final Axel Date Ultra Sound Latest Days Gestation 0 tiffany [email or web address] 02/23/2024 04/29/20 24 0 Pre-cristiano Flowsheet Flowsheet Date 11/16/2023 Jerez Score Blood Edema Fundus Height Fundus Units Glucose Ketones Leukocytes Nitrite Labor Signs Protein Cervic Dilation Cervic Effacement Cervic Station Type Weight in lbs Pre/Post Dialysis Refused With clothes 167.424374641211 BP Diastolic BP Location Tested BP Systolic BP Type 76 116 standing Fetus Heart Rate Present A 143 Present Fetus Movement Comments Patient doing well, feeling less nausea and gaining more of an appetite Flowsheet Date 12/19/2023 Jerez Score Blood Edema Fundus Height Fundus Units Glucose Ketones Leukocytes Nitrite Labor Signs Protein Cervic Dilation Cervic Effacement Cervic Station Type Weight in lbs Pre/Post Dialysis Refused With clothes 172.480086647777 BP Diastolic BP Location Tested BP Systolic BP Type 66 130 sitting Fetus Heart Rate Present Fetus Movement Comments Flowsheet Date 12/19/2023 Jerez Score Blood Edema Fundus Height Fundus Units Glucose Ketones Leukocytes Nitrite Labor Signs Protein Cervic Dilation Cervic Effacement Cervic Station 21 cm none Type Weight in lbs Pre/Post Dialysis Refused Weight 172.729516625887 BP Diastolic BP Location Tested BP Systolic BP Type 66 130 sitting Fetus Heart Rate Present A 145 Present Fetus Movement A Yes Comments 28 YO F . G1 delivery complicated by uterine inversion after manual extraction of placenta. Current c/b positive quantiferon gold and unable to r/o placenta previa on 20wk US. Plan for CXR 12/19/23. Other labs WNL. Plan for US 01/04/24 at [facility]. RTC 1 month. Flowsheet Date 01/16/2024 Jerez Score Blood Edema Fundus Height Fundus Units Glucose Ketones Leukocytes Nitrite Labor Signs Protein Cervic Dilation Cervic Effacement Cervic Station 26 cm Type Weight in lbs Pre/Post Dialysis Refused Weight 176.911538551875 BP Diastolic BP Location Tested BP Systolic BP Type 70 118 sitting Fetus Heart Rate Present A 135 Present Fetus Movement Comments reports CXR taken today, rep orts feeling well, denies coughing, sputum production, chest pain. Also denies ctx, loss of fluids, bleeding, changes in vaginal discharge. Flowsheet Date 02/20/2024 Jerez Score Blood Edema Fundus Height Fundus Units Glucose Ketones Leukocytes Nitrite Labor Signs Protein Cervic Dilation Cervic Effacement Cervic Station none 35 cm Type Weight in lbs Pre/Post Dialysis Refused Weight 184.998428204282 BP Diastolic BP Location Tested BP Systolic BP Type 71 R arm 112 sitting Fetus Heart Rate Present A 145 Present Fetus Movement Comments 29 y F , 30w1d GIANA. No a cute complaints. Pt reports yet to see MFM. Tdap administered today. 1hr GTT obtained today. 2T labs collected. Denies LOF, cough, fever, vaginal bleeding, vaginal discharge, RAYMUNDO. Endorses movement. Flowsheet Date 03/08/2024 Jerez Score Blood Edema Fundus Height Fundus Units Glucose Ketones Leukocytes Nitrite Labor Signs Protein Cervic Dilation Cervic Effacement Cervic Station 32 cm Type Weight in lbs Pre/Post Dialysis Refused With clothes 187.212532160859 BP Diastolic BP Location Tested BP Systolic BP Type 73 R arm 115 sitting Fetus Heart Rate Present A 138 Fetus Movement Comments Patient doing well, reports she saw MFM day prior but they claimed to not have her labs and there was a lot of confusion at that appointment.Denies ctx, LOF, LOB, endorses regular movement. Patient having a girl Flowsheet Date 03/21/2024 Jerez Score Blood Edema Fundus Height Fundus Units Glucose Ketones Leukocytes Nitrite Labor Signs Protein Cervic Dilation Cervic Effacement Cervic Station 34.5 cm Type Weight in lbs Pre/Post Dialysis Refused With clothes 188.158093285938 BP Diastolic BP Location Tested BP Systolic BP Type 72 R arm 115 sitting Fetus Heart Rate Present A 138 Fetus Movement A Yes Comments Patient presents for routine OB visit, denies CTX, LOF, LOB, endorses movement. Educated patient regarding immunizations, was given flu shot in clinic today, planned to received RSV vaccine, denies COVID booster at this time (received 09/2023). Explained to patient expectations for upcoming appointments and was given labor precautions. Flowsheet Date 04/05/2024 Jerez Score Blood Edema Fundus Height Fundus Units Glucose Ketones Leukocytes Nitrite Labor Signs Protein Cervic Dilation Cervic Effacement Cervic Station 36.5 cm Other (see comments ) Type Weight in lbs Pre/Post Dialysis Refused Weight 189.848349078441 BP Diastolic BP Location Tested BP Systolic BP Type 80 R arm 123 sitting Fetus Heart Rate Present A 133 Present Fetus Movement A Yes Comments GIANA @ 36w4d. Denies LOF, vag inal bleeding. Reports occasional suprapubic cramping when cold, not every day, just once in a while and resolves on its own. denies dysuria. Patient advised to get belly band for support. Endorses movement. Ok with nitrous mask and IV pain meds. Does not want epidural. Patient advised of risk of uterine inversion with this delivery due to uterine inversion with prior delivery. TDaP, RSV, and Flu vaccine given. GBS collected 04/05/24. RTC 1 week. Flowsheet Date 04/18/2024 Jerez Score Blood Edema Fundus Height Fundus Units Glucose Ketones Leukocytes Nitrite Labor Signs Protein Cervic Dilation Cervic Effacement Cervic Station 38 cm 0cm 50% -3 Type Weight in lbs Pre/Post Dialysis Refused Weight 193.416181418252 BP Diastolic BP Location Tested BP Systolic BP Type 82 R arm 126 sitting Fetus Heart Rate Present A 138 Present Fetus Movement A Yes Comments GIANA @ 38.3 weeks, no concern s, denies Pre E symptoms. GBS negative, vertex scan in clinic, cervical check 0/50 %/-3. Plan to schedule for eIOL after 40 weeks. F/u 1 week Flowsheet Date 04/23/2024 Jerez Score Blood Edema Fundus Height Fundus Units Glucose Ketones Leukocytes Nitrite Labor Signs Protein Cervic Dilation Cervic Effacement Cervic Station 38 cm Type Weight in lbs Pre/Post Dialysis Refused Weight 194.483428398031 BP Diastolic BP Location Tested BP Systolic BP Type 74 R arm 115 sitting Fetus Heart Rate Present A 129 Fetus Movement A Yes Comments GIANA @39.1. Denies pre e sxs. Reports intermittent hardening of abdomen, no actual contractions/pain. Vertex. eIOL was discussed last week, plan was to schedule date if she has note delievred 04/29/24. Provided natural induction sheet. Does not want epidural Flowsheet Date 04/30/2024 Jerez Score Blood Edema Fundus Height Fundus Units Glucose Ketones Leukocytes Nitrite Labor Signs Protein Cervic Dilation Cervic Effacement Cervic Station Type Weight in lbs Pre/Post Dialysis Refused Weight 185.237310901623 BP Diastolic BP Location Tested BP Systolic BP Type 70 L arm 115 sitting Fetus Heart Rate Present Fetus Movement Comments Menstrual History Last Menstrual Date Menses Monthly On Bcp Conception Prior Menses Frequency Hcg Plus Date Menarche Onset Age 0107/24/2023 Genetic Screening And Infection History Question Response Note Patient's Age Will Be 35 Years Or Older At Estim ated Date of Delivery false Thalassemia (Pakistani, Tajik, Mediterranean, Or Background): MCV < 80 false Neural Tube Defect (Meningomyelocele, Spina Bifi da, Or Anencephaly) false Congenital Heart Defect false Down Syndrome false Lazaro-Sachs (eg, Jainism, Cajun, Kuwaiti-[place]) f alse Jayme Disease false Sickle Cell Disease Or Trait () false Hemophilia Or Other Blood Disorders false Muscular Dystrophy false Cystic Fibrosis false Owsley's Chorea false Mental Retardation/Autism false If Yes, Was Person Tested For Fragile X? false Other Inherited Genetic Or Chromosomal Disorder false Maternal Metabolic Disorder (eg, Type 1 Diabetes , PKU) false Patient Or Baby's Father Had A Child With Defects Not Listed Above false Recurrent Loss, Or A Stillbirth false Medications (including Suppl ements, Vitamins, Herbs, OTC Drugs), Illicit/Recreational Drugs, Alcohol false If Yes, Agent(s) And Strength/Dosage false Any Other Genetic History false Live With Someone With TB Or Exposed To TB false Patient Or Partner Has History Of Genital Herpes false Rash Or Viral Illness Since Last Menstrual Perio d false History Of STD, Gonorrhea, Chlamydia, HPV, Syphi lis false Other Infection History false History of HIV false History of Hepatitis false Prior GBS-infected child false Plans and Education First Trimester Discussed Date Discussion Item Discussion Note Discuss ed By Second Trimester Discussed Date Discussion Item Discussion Note Discuss ed By 12/19/[address] care provider [address] Peter fountian 12/19/2023 family planning/tubal sterilization Patient to speak with her [facility]28 12/19/2023 Abnormal lab values [place] [address] 12/19/2023 Signs and symptoms o f labor [place] [address] Tobacco/smoking cess ation counseling (ask, advise, assess, assist, and arrange) Patient's smokes Third Trimester Discussed Date Discussion Item Discussion Note Discuss ed By 04/05/2024 Intimate partner violence [facility]28 04/05/2024 Anesthesia plans Ok with nitrous and IV pain meds. Does not want epidural. [facility]28 04/05/2024 movement monitoring [facility]28 04/05/2024 Plans to breast feed. [facility] office to provide breast pump. [facility]28 04/05/2024 Labor signs [place] [address] Delivery Information Delivery Date Delivery Type Labor Anesthesia Weeks Gestation Incision Type Labor Labor Length Hrs Delivered By Post Complications Tubal Sterilization Discharge Date Comments Sponta neous None 39.4 false Mo Holcomb MD Hypertension false 04/27/2024 Delivery c/b 2nd degree perineal lac. Postpartu m c/b gHTN Discharge Information Feeding Method Contraceptive Method Maternal HG B and HCT Levels Combination
[2024-09-07] MEDS: SODIUM CHLORIDE 0.9% IV 1,000 ML 999 ML IV CONT ×2 (16:32→17:29)
[2024-09-07 16:37] LABS: Basophils Absolute Auto 0.1 K/mm3 (0.0-0.1); Basophils Percent Auto 0.3 % (0.2-1.2); Eosinophils Absolute Auto 0.2 K/mm3 (0-0.3); Eosinophils Percent Auto 0.8 % (0-4.4); Hematocrit 39.9 % (37.0-47.0); Immature Granulocyte Absolute 0.09 K/mm3 (0.00-0.031); Immature Granulocyte Percent A 0.5 % (0-0.5); Lymphocytes Absolute Auto 0.85 K/mm3 (0.9-3.2); Lymphocytes Percent Auto 4.4 % (18.3-44.2); Mean Corpuscular HGB Conc 32.6 g/dl (32-36); Mean Corpuscular Hemoglobin 28.1 pg (26-34); Mean Corpuscular Volume 86.2 fl (80-100); Mean Platelet Volume 10.1 fl (7.4-10.4); Monocytes Percent Auto 10.3 % (2.6-8.5); Neutrophils Absolute Auto 16.3 K/mm3 (1.3-6.7); Neutrophils Percent Auto 83.7 % (45.5-73.1); Platelet Count Result 312 k/mm3 (150-375); Red Blood Count 4.63 M/mm3 (4.2-5.4); White Blood Count 19.4 K/mm3 (4.5-10.0)
[2024-09-07 16:50] LABS: Alanine Aminotransferase 20 U/L (6-35); Albumin Level 4.9 g/dL (3.5-5.1); Alkaline Phosphatase 116 U/L (38-126); Anion Gap 16 mmol/L (4-12); Aspartate Amino Transferase 30 U/L (14-36); Bilirubin,Total 1.6 mg/dL (0.2-1.3); Blood Urea Nitrogen 14 mg/dL (7-17); Calcium 9.4 mg/dL (8.4-10.2); Carbon Dioxide 21 mmol/L (22-30); Chloride 100 mmol/L (98-107); Estimated CRCL calculation 83 ml/min; Estimated Glomerular Filt Rate > 60; Glucose 115 mg/dL (65-110); Potassium 3.5 mmol/L (3.4-5.0); Sodium 137 mmol/L (137-145)
[2024-09-07 17:31] VITALS: BP 114/68; PULSE 101; RESP 16; O2SAT 97
[2024-09-07 18:12] VITALS: BP 111/63; PULSE 94; RESP 16; O2SAT 98
--- NOTE | 2024-09-07 18:25 | ED_ITS ---
HPI - General Adult General Chief complaint: Urogenital-Female Stated complaint: NAUSEA,FEVER,BODY ACHES,PAINFUL URINATION Time Seen by Provider: 09/07/24 16:13 History of Present Illness HPI narrative: 29-year-old female presents to the emergency department for evaluation for urinary pain. Patient has had nausea without vomiting. Patient denies any vaginal bleeding, vaginal discharge denies any abdominal pain. Related Data Allergies Allergy/AdvReac Type Severity Reaction Status Date / Time No Known Allergies Allergy Verified 09/07/24 13:41 Review of Systems 2 Review of Systems: All systems reviewed & are unremarkable except as noted in HPI and below Exam 2 Narrative: APPEARANCE: Well appearing, no pain, no distress, well-nourished. HEAD: normocephalic, atraumatic. EYES: PERRLA/EOMI, conjunctivae clear. NOSE: Normal no drainage EARS:TMS clear with good light reflex. THROAT: Pharynx clear, no exudate. NECK: Supple. No adenopathy, no masses. RESPIRATORY: Airway patent, respirations nonlabored. Clear to auscultation bilaterally, no rales, rhonchi, wheezing. CARDIOVASCULAR: Regular rate and rhythm without murmurs rubs or gallops. ABDOMINAL: Soft, nontender, nondistended, normal bowel sounds MUSCULOSKELETAL: Moves all extremities. Strength/ROM intact, No edema, No calf tenderness. NEURO: Alert. Cranial nerves II through XII intact. Grossly intact SKIN: Warm, dry. Normal Color Course Vital Signs Vital signs: Vital Signs Temperature 99.5 F 09/07/24 13:49 Pulse Rate 120 H 09/07/24 13:49 Respiratory Rate 20 09/07/24 13:49 Blood Pressure 121/65 09/07/24 13:49 Pulse Oximetry 98 09/07/24 13:49 Temperature 98.9 F 09/07/24 16:16 Pulse Rate 94 09/07/24 18:12 Respiratory Rate 16 09/07/24 18:12 Blood Pressure 111/63 09/07/24 18:12 Pulse Oximetry 98 09/07/24 18:12 Medical Decision Making [facility] Narrative Medical decision making narrative: 29-year-old female presents emergency department for evaluation for dysuria. Patient was tachycardic when she arrived but heart rate did improved with rehydration. Patient describes nausea without vomiting. Patient was treated with 1 g of IV Rocephin the emergency department and patient was discharged home on Keflex. Patient states she is on the prefers to be discharged home. Patient denies any other pain or complaints. Differential Diagnosis Differential Diagnosis: Urinary tract infection, pyelonephritis my nausea, vomiting Vital Signs Vital Signs: Vital Signs Temperature 99.5 F 09/07/24 13:49 Pulse Rate 120 H 09/07/24 13:49 Respiratory Rate 20 09/07/24 13:49 Blood Pressure 121/65 09/07/24 13:49 Pulse Oximetry 98 09/07/24 13:49 Temperature 98.9 F 09/07/24 16:16 Pulse Rate 94 09/07/24 18:12 Respiratory Rate 16 09/07/24 18:12 Blood Pressure 111/63 09/07/24 18:12 Pulse Oximetry 98 09/07/24 18:12 Lab Data 09/07/24 16:31 09/07/24 16:31 Labs: Lab Results 09/07/24 09/07/24 09/07/24 Range/Units 15:22 15:24 16:31 WBC 19.4 H (4.5-10.0) K/mm3 RBC 4.63 (4.2-5.4) M/mm3 Hgb 13.0 (12.0-15.0) g/dL Hct 39.9 (37.0-47.0) % MCV 86.2 (80-100) fl MCH 28.1 (26-34) pg MCHC 32.6 (32-36) g/dl RDW 13.0 (11.5-14.5) % Plt Count 312 (150-375) k/mm3 MPV 10.1 (7.4-10.4) fl Immature Gran % (Auto) 0.5 (0-0.5) % Neut % (Auto) 83.7 H (45.5-73.1) % Lymph % (Auto) 4.4 L (18.3-44.2) % Bullock % (Auto) 10.3 H (2.6-8.5) % Eos % (Auto) 0.8 (0-4.4) % Baso % (Auto) 0.3 (0.2-1.2) % Lymph # (Auto) 0.85 L (0.9-3.2) K/mm3 Bullock # (Auto) 2.0 H (0.1-0.6) K/mm3 Eos # (Auto) 0.2 (0-0.3) K/mm3 Baso # (Auto) 0.1 (0.0-0.1) K/mm3 Abs Immat Gran (auto) 0.09 H (0.00-0.031) K/mm3 Absolute Neuts (auto) 16.3 H (1.3-6.7) K/mm3 Absolute Nucleated RBC 0.000 (0.0-0.012) K/mm3 Nucleated RBC % 0.0 (0.0-0.2) % Sodium 137 (137-145) mmol/L Potassium 3.5 (3.4-5.0) mmol/L Chloride 100 (98-107) mmol/L Carbon Dioxide 21 L (22-30) mmol/L Anion Gap 16 H (4-12) mmol/L BUN 14 (7-17) mg/dL Creatinine 0.95 (0.7-1.0) mg/dL Estim Creat Clear Calc 83 ml/min Estimated GFR > 60 (59 - ) Glucose 115 H (65-110) mg/dL Calcium 9.4 (8.4-10.2) mg/dL Total Bilirubin 1.6 H (0.2-1.3) mg/dL AST 30 (14-36) U/L ALT 20 (6-35) U/L Alkaline Phosphatase 116 (38-126) U/L Total Protein 9.0 H (6.3-8.2) g/dL Albumin 4.9 (3.5-5.1) g/dL Urine Color Dark yellow (Yellow) Urine Appearance Cloudy H (Clear) Urine pH 5.5 (5.0-9.0) Ur Specific [place] 1.020 (1.001-1.035) Urine Protein 2+ H (Negative) mg/dL Urine Glucose (UA) Negative (Negative) mg/dL Urine Ketones 3+ H (Negative) mg/dL Ur Blood (Man) 3+ H (Negative) Urine Nitrate Positive H (Negative) Urine Bilirubin 1+ H (Negative) Urine Urobilinogen 1.0 (<2.0) mg/dL Leukocyte Esterase Rfl 2+ H (Negative) HARLAN/UL Urine RBC >100 H (0-2) /hpf Urine WBC >100 H (0-3) /hpf Ur Squamous Epith Cells None seen (Few) /hpf Urine Bacteria 4+ H /hpf Urine Casts 0-2 POC Urine HCG, Qual Negative (Negative) Discharge Plan Discharge Clinical Impression: Urinary tract infection Patient Disposition: Home, Self-Care Condition: Stable Instructions: Antibiotic Form Additional Instructions: Antibiotic as directed until completed. Have close follow-up with your primary care physician Patient Language: [place] Prescriptions: New cephalexin 500 mg capsule 500 mg PO Q8H 7 Days Qty: 21 0RF Follow-up/Referrals: PHYSICIAN NOT ON STAFF,NONSTAFF [Primary Care Provider] -
== END 2024-09-07 18:50 | disposition home or self-care (01) ==
PROVIDERS: Emergency Provider Emergency Medicine
DX: N39.0 Urinary tract infection, site not specified (principal)
CPT/HCPCS: 36415; 80053; 81001; 81025; 85025; 87086; 87186; 96361; 96365; 99284; J0696; J7030